=== PATIENT | male | born 1940 | race Caucasian/White ===

== ENCOUNTER 2018-01-23 11:35 | Inpatient (IN) | payer MEDICARE, SELFPAY ==
[2018-01-23] VITALS (16 sets, daily range): BP systolic 108–158; BP diastolic 52–108; PULSE 64–149; RESP 20–30; TEMP 36.7–37.2; O2SAT 64–97; BMI 40.8; BMI 39.2
--- NOTE | 2018-01-23 12:30 | RAD_ITS ---
STUDY: X-RAY CHEST REASON FOR EXAM: Male, 78 years old. Hypoxia TECHNIQUE: Single AP portable view of the chest. COMPARISON: None. FINDINGS: EKG leads overlie the chest Lungs are expanded with fluffy airspace opacifications in both lung [place] worse on the right than the left with small pleural effusions. Follow-up recommended to assure resolution Normal size heart. Normal mediastinum and pooja. Normal visualized pulmonary arteries. Normal visualized aortic arch and descending thoracic aorta. There are diffuse degenerative changes of the visualized thoracic spine. Normal visualized ribs, clavicles, and shoulders. There is no demonstrated abnormality of the visualized soft tissue structures of the upper abdomen. RAD/Chest 1 View (Portable) IMPRESSION: Alveolar infiltrates in both lung [place] with small pleural effusions. Follow-up recommended to assure resolution Electronically Signed: Abdoulaye Barrientos MD at 13:09 EDT , Service support ,
--- NOTE | 2018-01-23 12:30 | EKG12_ITS ---
Test Reason : SOB Blood Pressure : / mmHG Vent. Rate : 098 BPM Atrial Rate : 098 BPM P-R Int : 212 ms QRS Dur : 098 ms QT Int : 336 ms P-R-T Axes : 050 252 027 degrees QTc Int : 428 ms Sinus rhythm with marked sinus arrhythmia with 1st degree A-V block Possible Left atrial enlargement Right superior axis deviation Low voltage QRS Incomplete right bundle branch block Inferior infarct , age undetermined Cannot rule out Anterior infarct , age undetermined Abnormal ECG Confirmed by ANEL JENKINS, SILVANO ([id number]), editor at large CUAUHTEMOC MONTEJO ([id number]) on 01/26/2018 11:10:42 AM Referred By: PATRICK Confirmed By:SILVANO TAM MD
[2018-01-23 12:56] LABS: International Normalized Ratio 1.2; Prothrombin Time (Protime)PT. 15.2 SECONDS (11.7-14.9)
[2018-01-23 12:57] LABS: Partial Thromboplast Time 38.8 Seconds (24.1-36.2)
[2018-01-23 12:58] LABS: Absolute Lymphocyte Count 1.03 X10^3/ul (0.83-4.51); Absolute Neutrophil Count 7.1 X10^3/uL (2.0-7.7); Basophil# 0.02 X10^3/uL; Basophil% 0.2 % (0-1); Differential Indicated SCAN CRITERIA MET; Eosinophil# 0.19 X10^3/uL; Eosinophils% 1.7 % (0-5); Hematocrit 48.5 % (40-54); Hemoglobin 14.2 g/dl (13.0-16.5); Lymphocyte # 1.03 X10^3/ul (4.0); Lymphocyte % 9.4 % (19-41); Mean Corp Hgb Conc 29.3 g/gl (32-36); Mean Corpuscular Hgb 24.8 pg (27.0-32.0); Mean Corpuscular Volume 84.8 fL (80-94); Monocyte# 2.57 X10^3/uL; Monocyte% 23.4 % (0-10); Neutrophil # 7.14 X10^3/uL (2.7-7.7); POSITIVE COUNT YES; POSITIVE DIFFERENTIAL YES; POSITIVE MORPHOLOGY YES; Platelet Count 119 K/mm3 (150-450); RBC Distribution Width CV 17.4 % (11.6-14.6); RBC Distribution Width SD 53.5 fl (35.1-43.9); Red Blood Count 5.72 M/mm3 (4.6-6.2)
[2018-01-23 12:59] LABS: NRBC Flagged by Analyzer 0.8 % (0-5)
[2018-01-23 13:00] LABS: Absolute Nucleated RBC Count 0.09 10^3/uL (0-5)
[2018-01-23 13:06] LABS: ALB/GLOB Ratio 0.7 RATIO (0.9-2.4); AST(SGOT) 27 U/L (15-37); Alanine Aminotransfer ALT/SGPT 22 U/L (16-61); Alkaline Phosphatase 61 U/L (45-117); Anion Gap 6 (5-15); BUN 15 mg/dL (7-18); BUN/Creat Ratio 17.3 RATIO (10-20); Calcium,Total 8.5 mg/dL (8.5-10.1); Chloride 102 mmol/L (98-107); Creatinine, Serum 0.87 mg/dL (0.70-1.30); EST Glomerular Filtration Rate 90 mL/min (>60); Est Glom Filt Rate - Afr Amer 109 mL/min (>60); Estimated Creatinine Clearance 68.85 ml/min; Globulin 4.1 g/dL (2.2-4.2); Glucose 150 mg/dL (74-106); Lactic Acid 1.5 mmol/L (0.4-2.0); Lipase 101 U/L (73-393); Potassium 4.6 mmol/L (3.5-5.1); Protein, Total 7.1 g/dL (6.4-8.2); Sodium Level 137 mmol/L (136-145)
--- NOTE | 2018-01-23 13:13 | CT_ITS ---
STUDY: CTA CHEST REASON FOR EXAM: Male, 78 years old. Hypoxia, thyroid cancer RADIATION DOSAGE (If Supplied By Facility): CTDIvol = ( 21.65 ) mGy, DLP = ( 714.71 ) mGycm TECHNIQUE: The examination was performed with the intravenous administration of 100 ml of Isovue 370 contrast material. Post-processing of the angiographic images was performed, with multiplanar reformation and 3D reconstruction. Individualized dose optimization techniques were used for this CT. COMPARISON: None. FINDINGS: Contrast bolus within the pulmonary arteries is not optimal but there is no CTA evidence of PE. There is atherosclerotic calcification of the aortic arch with tortuosity. There is no demonstrated aortic dissection. Normal heart and pericardium. There are calcifications of the coronary arteries. There are extensive abnormally enlarged mediastinal, and perihilar lymph nodes consistent with diffuse metastasis. The lung [place] also show innumerable noncalcified nodules in both lung [place] consistent with diffuse pulmonary metastasis. There are bilateral pleural effusions and associated atelectasis. The effusion should be considered malignant until proven otherwise. There are degenerative changes of thoracic spine. Limited cuts through the upper abdomen show suspicious hypoattenuating nodules in the liver suspicious for metastasis. There are granulomatous calcifications noted in the spleen and evidence of previous cholecystectomy. CT/CTA Chest W/WO Contrast IMPRESSION: No demonstrated PE, or thoracic aortic aneurysm or dissection. Extensive abnormally enlarged mediastinal and perihilar lymph nodes suspicious for metastasis Innumerable noncalcified nodules in both lung [place] consistent with pulmonary metastasis Chronic interstitial changes in both lung [place] Degenerative bony changes Calcified coronary vessels Low-density lesions within both lobes of the liver suspicious for metastasis Electronically Signed: Abdoulaye Barrientos MD at 14:26 EDT , Service support ,
[2018-01-23 13:16] LABS: Allen Test POS; Base Excess 3 mmol/L (-2 to +2); Bicarbonate 28.9 mmol/L (22-26); Blood Gas Specimen Type ART; O2 Delivery Device Nasal Can; PO2 56 mmHG (75-100); SITE R Radial; SO2 85 % (95-99); Time Given 1305; Total Carbon Dioxide 31 mmol/L; pH 7.31 (7.35-7.45)
[2018-01-23] MEDS: Albuterol 2.5 MG/3 ML VIAL.NEB. INHALATION (13:20)
[2018-01-23] MEDS: Ipratropium/Albuterol Sulfate 3 ML AMPUL.NEB INHALATION ×2 (13:20→18:45)
[2018-01-23 13:25] LABS: BNP,B-Type NATRIURETIC PEPTIDE 396.7 pg/mL (0-100); Platelet Estimate ADEQUATE (ADEQ); Platelet Morphology LARGE
--- NOTE | 2018-01-23 15:23 | ED.RN ---
pt tried to walk out ED doors x2, pleasant and cooperative to return to room. spoke with family on phone (they are in car), and are okay with him getting admitted to [facility]. moved pt to room 6 for closer observation.
[2018-01-23] MEDS: Cefazolin 2 GM in 0.9% Normal Saline 100 ML IV (15:31)
--- NOTE | 2018-01-23 15:32 | ED.VISSUMM ---
- ER Visit Summary Date of Service: 01/23/18 Chief Complaint: Leg swelling History of Present Illness: The patient is a 78 M who presents from his family doctor's office with leg swelling. Family states that both of his legs have been significantly swollen over the past week and now the right lower leg is turning red. They want to take him to his doctor's office while he was walking and he became particularly short of breath and was noted to be hypoxic in the 70s. He has a stoma from tracheostomy which he utilizes still. He received that after a total laryngectomy due to metastatic thyroid cancer. He has known lesions in the lung and the liver which reportedly is not treatable. He wears oxygen at night but has not required it during the daytime. Family states he does not have any known heart conditions but was told that his heart was enlarged and weak. No fevers. Physical Examination: 154/88 temperature 98.9 heart rate of 108. Respirations are 26. Pulse ox is 74% on room air. Gen: Well-nourished well-developed Head: Normocephalic atraumatic Eyes: Perrl EOMI ENT: TMs clear no rhinorrhea moist mucous membranes Neck: Supple no lymphadenopathy no JVD nontender CVS: Regular rate and tachycardic rhythm no murmurs normal S1-S2 Respiratory: Patient is tachypneic but not in distress has diminished breath sounds at bases and rales chest nontender Abdomen: Soft nontender nondistended normal bowel sounds no masses Back: Nontender Extremity: 3+ lower extremity edema. The right distal leg above the medial and lateral malleolus demonstrate erythema and increased warmth. There is also being sores. Skin: Normal color no rash Neuro: alert orientated ?3 CN II-XII intact normal strength sensation reflexes Psych: Normal affect normal mood Test Results: Chest x-ray shows pulmonary masses and pleural effusion. CTA of the chest demonstrates numerous lesions in the chest and liver as well as enlarged lymphadenopathy in the chest. No obvious pulmonary embolism. There are pleural effusions. Emergency Department Course and Treatment: Patient had blood cultures drawn. He received Ancef. He also received Lasix. Plan will be admission for diuresis echocardiogram and further care. Impression: 1. Metastatic thyroid cancer 2. Bilateral edema 3. Right leg cellulitis 4. Hypoxemia 5. Bilateral pleural effusions 6. Thrombocytopenia This note was generated with Dragon dictation software. It may contain incorrect words, spelling, and punctuation that were not noted in review of the chart prior to signing ED Disposition - Plan for ED Patient: Chief Complaint: Shortness of Breath Referrals: Shan Bonilla MD [Primary Care Provider] -
[2018-01-23] MEDS: Furosemide 100 MG/10 ML Vial 80 MG IV (15:50)
--- NOTE | 2018-01-23 16:14 | PCM.HP.STD ---
<Estrella Christine - Last Filed: 01/23/18 17:02> Problem List (1) Hypothyroidism Status: Chronic Qualifiers: Hypothyroidism type: acquired Qualified Code(s): E03.9 - Hypothyroidism, unspecified (2) ASHLEIGH (obstructive sleep apnea) Status: Chronic (3) Thyroid cancer Status: Chronic Comment: s/p thyroidectomy 2011 (4) Chronic respiratory failure with hypoxia Status: Chronic Comment: Wears O2 at night only. History of Present Illness Date of Admission: 01/23/18 Chief Complaint: Shortness of breath, hypoxia, lower extremity swelling. The patient is a 78 year old M who presents the emergency room due to shortness of breath and lower extremity swelling which has been ongoing for 2 weeks. Patient reports sleeping in chair due to difficulty breathing while lying flat. Right lower extremity with redness. Denies warmth, denies pain. Patient reported to primary care office today and was noted to be hypoxic with O2 saturations in the 70s. Family at bedside state patient's legs have never been swollen prior to this. No known history of CHF. Patient denies increased cough, fever, chills. Patient has chronic cough with intermittent sputum production. Patient reports chronic cough with hemoptysis since 2011. Patient has tracheostomy status post total laryngectomy due to metastatic thyroid cancer. Total laryngectomy completed in 2011. Patient and family deny known active cancer. His other past medical history includes obstructive sleep apnea, chronic hypoxic respiratory failure wearing oxygen at night only, hypothyroidism status post thyroidectomy, obesity. Past Medical History Past Medical History (Chronic Problems): Chronic Problems Hypothyroidism (Chronic) ASHLEIGH (obstructive sleep apnea) (Chronic) Thyroid cancer (Chronic) s/p thyroidectomy 2011 Chronic respiratory failure with hypoxia (Chronic) Wears O2 at night only. 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 Psychiatric History: No pertinent psych hx Lives: Spouse/ Significant Other Smoking Status: Former smoker Alcohol: None Drugs: None - *Family History Maternal History Items: Cancer - Uterine cancer with metastasis to the brain Paternal History Items: No pertinent history Review of Systems Constitutional: Denies: Chills, Fever, Weakness HEENT: Denies: Head Aches, Sinus Congestion, Sinus Drainage Cardiovascular: Reports: Edema - BLLE. Denies: Chest Pain, Chest Pressure, Light Headedness, Palpitations, Syncope Respiratory: Reports: Cough - Chronic with hemoptysis, Shortness of Breath Gastrointestinal: Reports: - - Hernia, chronic. Denies: Abdominal Pain, Nausea, Vomiting Genitourinary: Denies: Dysuria Musculoskeletal: Denies: Joint Pain, Joint Tenderness Skin: Reports: - - Redness right lower extremity. Denies: Rash, Wounds Neurological: Denies: Numbness, Tingling, Focal weakness Psychiatric: Denies: Anxiety, Depression, Homicidal Ideations, Suicidal Ideations Hematologic/ Lymphatic: Denies: Easy Bruising, Easy Bleeding VTE Information - Inpt Only VTE Present on Admission: No VTE Mechan Device Prophylaxis: None VTE Pharm Prophylaxis ordered?: Yes - Physical Exam General: Alert, Cooperative, No apparent distress HEENT: Atraumatic, PERRLA, EOMI, Normocephalic Neck: Supple, No JVD, Negative Carotid Bruits, - - Stoma Lungs: Diminished, Rales Cardiovascular: Regular Rhythm, Normal S1, Normal S2, No murmurs, Tachycardic Abdomen: Bowel Sounds Present, Soft, Non Tender, Non-Distended, Obese, Hernia Extremities: No clubbing, No cyanosis, Edema - +3 BLLE. Skin: No rashes, No breakdown, - - Redness RLE, no warmth. Denies calf pain. Musculoskeletal: No Tenderness to Palpation of Joints or Extremities Neurological: Cranial nerves II-XII grossly intact, Neuro grossly intact Psych/Mental Status: Normal Affect, Appropriate Vital Signs Temp Pulse Resp BP Pulse Ox 98.9 F 110 H 30 H 134/108 H 92 01/23/18 11:40 01/23/18 14:39 01/23/18 14:39 01/23/18 16:03 01/23/18 14:39 Oxygen Flow Rate (L/min) 4 Oxygen Delivery Method Nasal Cannula Weight: 276 lb 3.827 oz Body Mass Index (BMI) 40.8 Laboratory Tests Past 24 Hrs 01/23/18 01/23/18 01/23/18 12:00 12:00 12:00 WBC 11.0 RBC 5.72 Hgb 14.2 Hct 48.5 MCV 84.8 MCH 24.8 L MCHC 29.3 L RDW 17.4 H RDW Differential 53.5 H Plt Count 119 L Immature Gran % (Auto) 0.300 Neut % (Auto) 65.0 Lymph % (Auto) 9.4 L Mcmullen % (Auto) 23.4 H Eos % (Auto) 1.7 Baso % (Auto) 0.2 Absolute Neuts (auto) 7.1 Absolute Lymphs (auto) 1.03 Total Counted Not Reportable Nucleated RBC % 0.8 Platelet Estimate ADEQUATE Plt Morphology Comment LARGE Absolute Retic 0.09 PT 15.2 H INR 1.2 APTT 38.8 H Specimen Type Sample Site pH Bicarbonate Actual POC Total CO2 Base Excess O2 Saturation ABG pCO2 ABG pO2 Bayron Test O2 Delivery Device Liter Flow Blood Gas Notified Whom Blood Gas Notified Time Sodium 137 Potassium 4.6 Chloride 102 Carbon Dioxide 29.0 Anion Gap 6 BUN 15 Creatinine 0.87 Estim Creat Clear Calc 68.85 Est GFR (MDRD) Af Amer 109 Est GFR (MDRD) Non-Af 90 BUN/Creatinine Ratio 17.3 Glucose 150 H Lactic Acid Calcium 8.5 Total Bilirubin 0.60 AST 27 ALT 22 Alkaline Phosphatase 61 Troponin I 0.016 B-Natriuretic Peptide Total Protein 7.1 Albumin 3.0 L Globulin 4.1 Albumin/Globulin Ratio 0.7 L Lipase 101 01/23/18 01/23/18 01/23/18 12:00 12:00 13:09 WBC RBC Hgb Hct MCV MCH MCHC RDW RDW Differential Plt Count Immature Gran % (Auto) Neut % (Auto) Lymph % (Auto) Mcmullen % (Auto) Eos % (Auto) Baso % (Auto) Absolute Neuts (auto) Absolute Lymphs (auto) Total Counted Nucleated RBC % Platelet Estimate Plt Morphology Comment Absolute Retic PT INR APTT Specimen Type ART Sample Site R Radial pH 7.31 L Bicarbonate Actual 28.9 H POC Total CO2 31 Base Excess 3 H O2 Saturation 85 L ABG pCO2 57.0 H ABG pO2 56 L Bayron Test POS O2 Delivery Device Nasal Can Liter Flow 5.0 Blood Gas Notified Whom ED MD Blood Gas Notified Time 1305 Sodium Potassium Chloride Carbon Dioxide Anion Gap BUN Creatinine Estim Creat Clear Calc Est GFR (MDRD) Af Amer Est GFR (MDRD) Non-Af BUN/Creatinine Ratio Glucose Lactic Acid 1.5 Calcium Total Bilirubin AST ALT Alkaline Phosphatase Troponin I B-Natriuretic Peptide 396.7 H Total Protein Albumin Globulin Albumin/Globulin Ratio Lipase Assessment/Plan 1. Acute on chronic hypoxic respiratory failure suspect secondary to acute CHF, unknown subtype-chest x-ray on admission with small bilateral pleural effusions. Chest CTA showed no PE. Extensive abnormally enlarged mediastinal and perihilar lymph nodes suspicious for metastasis. Innumerable noncalcified nodules in both lung [place] consistent with pulmonary metastasis. Calcified coronary vessels. Low-density lesions within both lobes of the liver suspicious for metastasis. BNP 396. Patient reports he wears oxygen at night only at home. Continue supplement oxygen to maintain O2 at or above 90%. Bilateral lower extremity edema. Sumanth wraps bilateral lower extremities. Obtain echocardiogram. IV Lasix 40 mg twice daily. Strict I&O. Daily weight. Do not suspect RLE cellulitis. Obtain duplex US RLE to rule out DVT. Suspect this is chronic skin changes due to lymphedema. 2. Bilateral pleural effusions-suspect secondary to fluid overload. Repeat chest x-ray after diuresis. 3. Obstructive sleep apnea-CPAP nightly. 4. Hypothyroidism status post thyroid cancer with metastasis-continue synthroid regimen. Check TSH. 5. Thyroid cancer with metastasis to lung, liver, lymph node? Status post thyroidectomy. Patient and family deny known active cancer. Unclear how extensive metastasis is. Follows with Dr. Aquino, [facility] Oncology. Unclear how recently he has followed up. Consult Dr. Oro given concern for metastasis which patient denies being aware of. CT from July 2017 at [facility] showed interval increase in size of pulmonary masses and nodules with development of new nodules. Findings worsened from prior studies. Worsening of mediastinal and hilar lymphadenopathy. Multiple lesions in the liver. 6. Chronic hemoptysis-patient reports this is been ongoing since 2011. PCP records show patient was hospitalized for recurrent hemoptysis in 2016 at outside facility. He underwent therapeutic bronchoscopy. Does not follow with pulmonary medicine. Has not seen primary care since 2013. 7. Status post insulinoma resection 8. Chronic thrombocytopenia-stable, trend CBC. 9. Obesity-encourage diet lifestyle modifications. Nutrition consult. 10. Stoma with prior tracheostomy? ST evaluation. Pt denies difficulty swallowing. S/P thyroidectomy/laryngectomy. DVT prophylaxis-Lovenox sc. CODE status: attempted discussion with patient and was unable to understand his wishes regarding code status. Will contact family for further discussion. This patient was seen by MARLYN Landaverde under the supervision of Dr. Ang. <SavJuliannamarck E - Last Filed: 01/23/18 17:32> History of Present Illness The patient is a 78 year old M [] Past Medical History Allergies No Known Allergies Allergy (Verified 01/23/18 11:43) - Physical Exam Vital Signs Temp Pulse Resp BP Pulse Ox 98.9 F 110 H 30 H 134/108 H 92 01/23/18 11:40 01/23/18 14:39 01/23/18 14:39 01/23/18 16:03 01/23/18 14:39 Oxygen Flow Rate (L/min) 4 Oxygen Delivery Method Nasal Cannula Weight: 276 lb 3.827 oz Body Mass Index (BMI) 40.8 Laboratory Tests Past 24 Hrs 01/23/18 01/23/18 01/23/18 12:00 12:00 12:00 WBC 11.0 RBC 5.72 Hgb 14.2 Hct 48.5 MCV 84.8 MCH 24.8 L MCHC 29.3 L RDW 17.4 H RDW Differential 53.5 H Plt Count 119 L Immature Gran % (Auto) 0.300 Neut % (Auto) 65.0 Lymph % (Auto) 9.4 L Mcmullen % (Auto) 23.4 H Eos % (Auto) 1.7 Baso % (Auto) 0.2 Absolute Neuts (auto) 7.1 Absolute Lymphs (auto) 1.03 Total Counted Not Reportable Nucleated RBC % 0.8 Platelet Estimate ADEQUATE Plt Morphology Comment LARGE Absolute Retic 0.09 PT 15.2 H INR 1.2 APTT 38.8 H Specimen Type Sample Site pH Bicarbonate Actual POC Total CO2 Base Excess O2 Saturation ABG pCO2 ABG pO2 Bayron Test O2 Delivery Device Liter Flow Blood Gas Notified Whom Blood Gas Notified Time Sodium 137 Potassium 4.6 Chloride 102 Carbon Dioxide 29.0 Anion Gap 6 BUN 15 Creatinine 0.87 Estim Creat Clear Calc 68.85 Est GFR (MDRD) Af Amer 109 Est GFR (MDRD) Non-Af 90 BUN/Creatinine Ratio 17.3 Glucose 150 H Lactic Acid Calcium 8.5 Total Bilirubin 0.60 AST 27 ALT 22 Alkaline Phosphatase 61 Troponin I 0.016 B-Natriuretic Peptide Total Protein 7.1 Albumin 3.0 L Globulin 4.1 Albumin/Globulin Ratio 0.7 L Lipase 101 01/23/18 01/23/18 01/23/18 12:00 12:00 13:09 WBC RBC Hgb Hct MCV MCH MCHC RDW RDW Differential Plt Count Immature Gran % (Auto) Neut % (Auto) Lymph % (Auto) Mcmullen % (Auto) Eos % (Auto) Baso % (Auto) Absolute Neuts (auto) Absolute Lymphs (auto) Total Counted Nucleated RBC % Platelet Estimate Plt Morphology Comment Absolute Retic PT INR APTT Specimen Type ART Sample Site R Radial pH 7.31 L Bicarbonate Actual 28.9 H POC Total CO2 31 Base Excess 3 H O2 Saturation 85 L ABG pCO2 57.0 H ABG pO2 56 L Bayron Test POS O2 Delivery Device Nasal Can Liter Flow 5.0 Blood Gas Notified Whom ED MD Blood Gas Notified Time 1305 Sodium Potassium Chloride Carbon Dioxide Anion Gap BUN Creatinine Estim Creat Clear Calc Est GFR (MDRD) Af Amer Est GFR (MDRD) Non-Af BUN/Creatinine Ratio Glucose Lactic Acid 1.5 Calcium Total Bilirubin AST ALT Alkaline Phosphatase Troponin I B-Natriuretic Peptide 396.7 H Total Protein Albumin Globulin Albumin/Globulin Ratio Lipase Assessment/Plan Hospitalist note: I am seeing this patient in conjunction with Estrella Christine. I independently seen and examined the patient. History and physical, laboratory data and imaging studies reviewed. I agree with above admission and treatment plan. This patient has complicated past medical history with past history of metastatic thyroid cancer status post surgery and laryngectomy, not a candidate for chemotherapy according to the patient and ER physician who reviewed the patient's oncologist note. Patient was sent to the ED today from his PCPs office because of hypoxia, was found to have pulse ox in the 70s on room air. He complained of increasing bilateral lower extremity swelling as well as shortness of breath that has been going on for couple of weeks. At this time, patient was not able to provide detailed history and because of the tracheostomy stoma, he has difficulties speaking because of aphonia and it was very hard to understand what he is saying. In the emergency department, patient was afebrile, tachycardic, hypoxic and he required up to 4 L of oxygen and his blood pressure was stable. His routine blood work was remarkable for thrombocytopenia which is not clear if this is chronic. BMP, LFT and lipase were normal. His troponin was 0.016, BNP was 396. Chest x-ray revealed bilateral small pleural effusion more on the right side as well as bilateral pulmonary metastasis. CTA chest showed no evidence of PE, revealed extensive large mediastinal lymph nodes, innumerable nodules in both lung [place] consistent with metastasis. He is being admitted for acute hypoxic and hypercapnic respiratory failure and probable CHF. - Physical Exam General: Alert, Oriented x3, Cooperative, No apparent distress. HEENT: Atraumatic, PERRLA, EOMI. Neck: Supple, No JVD, Negative Carotid Bruits, Trachea Midline, Thyroid Normal. Lungs: Decreased breath sounds bilateral, bilateral coarse crackles, minimal shortness of breath, no wheezing. Cardiovascular: Regular rate, Regular Rhythm, Normal S1, Normal S2, PMI Normal, tachycardia. Abdomen: Bowel Sounds Present, Soft, Non Tender, Non-Distended, No Hepato-splenomegaly, umbilical hernia. Extremities: No clubbing, No cyanosis,+++ massive nonpitting edema. Right lower leg is red. Skin: No rashes, No breakdown Neurological: Neuro grossly intact Assessment and plan: #1 acute on chronic hypoxic and hypercapnic respiratory failure: Patient never been oxygen before but he is a chronic smoker in the past. This is could be due to probable CHF in addition to history of pulmonary metastasis. His ABG revealed pH of 7.31, PCO2 of 57 and PO2 of 56. Chest x-ray reviewed as above. Plan: Admit to PCU, IV diuresis, 2D echocardiogram, bronchodilators, duplex ultrasound of the right leg to rule out DVT. #2 probable CHF, unspecified: Patient had no history of CAD or heart disease. Clinically, he could be in CHF based on his symptoms, leg edema and elevated BNP as well as chest x-ray findings. Plan: IV diuresis, fluid restriction, 2D echocardiogram. #3 small bilateral pleural effusion: More on the right side. Could be transudative because of CHF or exudative because of his pulmonary metastasis. Plan as above. #4 metastatic thyroid cancer with metastases to liver and lung: Status post thyroidectomy and laryngectomy, was informed by oncology at [facility] that he is not a candidate for chemotherapy, not clear why. #5 CODE STATUS: I spoke with the patient about his CODE STATUS and I could not understand what he wants to say. We need to speak with the family about his CODE STATUS. #6 other chronic medical problems: Stable, continue current medications as above. This note was generated with Peekyation software. It may contain incorrect words, spelling, and punctuation that were not noted in checking the note before signing. Code Visit Inpatient E&M: 39006 Init Hosp L3
--- NOTE | 2018-01-23 16:58 | VDLE_ITS ---
Reason For Study: swelling RIGHT LEFT GSV is normal. CFV is compressible, spontaneous, phasic, CFV is compressible, spontaneous, phasic, competent, and demonstrates normal competent and demonstrates normal augmentation. augmentation. FV is compressible, spontaneous, phasic, competent and demonstrates normal augmentation. POP V is compressible, spontaneous, phasic, competent and demonstrates normal augmentation. T/P Trunk is compressible. PTV is compressible. RT PerV is compressible. Procedure Exam performed portable in patient room. The exam was diagnostic. A preliminary report was called and/or faxed to the pt's RN. Interpretation Summary There is no evidence of right lower extremity deep vein thrombosis. Right greater saphenous vein appears patent and compressible segmentally. Normal flow patterns left common femoral vein. Crdering Physician: Estrella Christine NP- Performed By: Kemal Oliva RVT
--- NOTE | 2018-01-23 17:10 | ECHOCS_ITS ---
Reason For Study: DYSPNEA/SOB Procedure This was a 2D Doppler, Color Flow transthoracic echocardiogram. The study was technically difficult. Contrast injection was performed. Exam performed portable in patient room. Left Ventricle Based upon the 2D echocardiographic and contrast enhanced images obtained there is grossly normal appearing left ventricular size, wall motion, and systolic function. The estimated ejection fraction is 55 %. Diastolic function is indeterminate. Right Ventricle 2D echocardiographic and contrast enhance images obtained potentially c/w mild right ventricular dilatation and global dysfunction. Atria Normal left atrium. Possible mild right atrial enlargement. No doppler evidence for ASD. Mitral Valve There is no mitral annular calcification. Normal mitral valve. Trivial mitral valve insufficiency. Tricuspid Valve Normal tricuspid valve. Trivial tricuspid valve insufficiency. Unable to estimate RV systolic pressure/pulmonary artery pressure due to technically difficult study. Aortic Valve Trisinus/trileaflet aortic valve. Mild diffuse aortic valve thickening. Mild diffuse aortic valve calcification. Aortic sclerosis, no stenosis. Trivial aortic valve insufficiency. Pulmonic Valve The pulmonic valve is not well visualized. Trivial pulmonic valve insufficiency. Great Vessels Mildly dilated aortic root. Pericardium/Pleural No pericardial effusion. Medication Diluted definity 5ml given slow IV push to enhance endocardial definition. MMode/2D Measurements & Calculations LVIDd: 4.9 cm IVSd: 1.3 cm LVOT diam: 3.0 cm LVIDs: 3.2 cm LVPWd: 0.94 cm LVOT area: 7.2 cm2 FS: 35.5 % Ao root diam: 4.1 cm LA dimension: 3.2 cm Aortic Valve Planimetry: 2.6 cm2 Doppler Measurements & Calculations MV E max paolo: 52.9 cm/sec Lat Peak E' Paolo: 7.8 cm/sec Med Peak E' Paolo: 8.2 cm/sec MV A max paolo: 100.2 cm/sec E/E' lat: 6.8 E/E' med: 6.5 MV E/A: 0.53 Ao V2 max: 225.4 cm/sec LV V1 max: 80.9 cm/sec SV(LVOT): 103.1 ml Ao max P.5 mmHg LV V1 max P.6 mmHg Ao V2 mean: 176.4 cm/sec LV V1 mean P.5 mmHg Ao mean P.7 mmHg LV V1 mean: 58.5 cm/sec Ao V2 VTI: 38.3 cm LV V1 VTI: 14.3 cm GRETTA(I,D): 2.7 cm2 GRETTA(V,D): 2.6 cm2 PA V2 max: 93.8 cm/sec Interpretation Summary The study was technically difficult. Contrast injection was performed. Based upon the 2D echocardiographic and contrast enhanced images obtained there is grossly normal appearing left ventricular size, wall motion, and systolic function. The estimated ejection fraction is 55 %. 2D echocardiographic and contrast enhance images obtained potentially c/w mild right ventricular dilatation and global dysfunction. Possible mild right atrial enlargement. Trivial mitral valve insufficiency. Trivial tricuspid valve insufficiency. Aortic sclerosis, no stenosis. Trivial aortic valve insufficiency. Trivial pulmonic valve insufficiency. Mildly dilated aortic root. Unable to estimate RV systolic pressure/pulmonary artery pressure due to technically difficult study. Diastolic function is indeterminate. Ordering Physician: Basim Ang Referring Physician: PITER HUGHES Performed By: Tara Bose RDCS
--- NOTE | 2018-01-23 17:33 | EKG12_ITS ---
Test Reason : ADMISSION Blood Pressure : / mmHG Vent. Rate : 115 BPM Atrial Rate : 102 BPM P-R Int : 204 ms QRS Dur : 092 ms QT Int : 344 ms P-R-T Axes : 026 253 026 degrees QTc Int : 475 ms Sinus tachycardia with Premature supraventricular complexes Possible Left atrial enlargement Inferior infarct , age undetermined Anterolateral infarct , age undetermined Abnormal ECG When compared with ECG of 23-JAN-2018 12:45, MANUAL COMPARISON REQUIRED, DATA IS UNCONFIRMED Confirmed by DAVE JENKINS, JONATHAN ([id number]), editor & co founder KESHAV LECHUGA ([id number]) on 01/30/2018 11:01:30 AM Referred By: ART Confirmed By:JONATHAN ACOSTA MD
--- NOTE | 2018-01-23 17:40 | CPS ---
Addendum entered by Anita Howe 01/23/18 20:48: Original Note: pt on room air...64%. pt placed on 50% venti to stoma with trach collar mask...sat to 93%.
[2018-01-23 17:58] LABS: Thyroid Stim Hormone (TSH) 0.13 uIU/mL (0.358-3.74)
[2018-01-23] MEDS: 0.9% NaCl Peripheral Flush Adult/Peds IV (18:55)
[2018-01-23] MEDS: Furosemide 40 MG/4 ML Vial IV (18:55)
[2018-01-23] MEDS: Nystatin/Triamcin Cream Tube 1 APPLIC TOPICAL (23:15)
[2018-01-24] VITALS (21 sets, daily range): BP systolic 101–133; BP diastolic 52–80; PULSE 90–164; RESP 16–40; TEMP 36.6–37.4; O2SAT 90–98
[2018-01-24] MEDS: Ipratropium/Albuterol Sulfate 3 ML AMPUL.NEB INHALATION ×3 (01:09→13:10)
--- NOTE | 2018-01-24 01:51 | RAD_ITS ---
STUDY: X-RAY CHEST REASON FOR EXAM: Male, 78 years old. Tachypnea and tachycardia. History of thyroid cancer TECHNIQUE: PA and lateral views of the chest. COMPARISON: 01/23/2018. FINDINGS: Bilateral infiltrates are again seen markedly worse on the right side unchanged since the prior examination. There are small bilateral pleural effusions. Normal size heart. Normal mediastinum and pooja. Normal visualized pulmonary arteries. There is atherosclerotic tortuosity of the aortic arch and descending thoracic aorta. Normal visualized thoracic spine. Normal visualized ribs, clavicles, and shoulders. There is no demonstrated abnormality of the visualized soft tissue structures of the upper abdomen. RAD/Chest PA and Lateral IMPRESSION: Bilateral infiltrates worse on the right side unchanged as prior examination. Small bilateral pleural effusions. Electronically Signed: Alvaro Barrera MD at 2:44 EDT Tel , Service support ,
[2018-01-24 02:56] LABS: Absolute Lymphocyte Count 1.85 X10^3/ul (0.83-4.51); Basophil# 0.02 X10^3/uL; Basophil% 0.2 % (0-1); Differential Indicated SCAN CRITERIA MET; Eosinophil# 0.13 X10^3/uL; Eosinophils% 1.1 % (0-5); Hematocrit 47.4 % (40-54); Hemoglobin 14.2 g/dl (13.0-16.5); Lymphocyte # 1.85 X10^3/ul (4.0); Lymphocyte % 15.7 % (19-41); Mean Corpuscular Hgb 25.1 pg (27.0-32.0); Mean Corpuscular Volume 83.9 fL (80-94); Monocyte# 1.73 X10^3/uL; Monocyte% 14.7 % (0-10); Neutrophil # 8.02 X10^3/uL (2.7-7.7); POSITIVE COUNT YES; POSITIVE DIFFERENTIAL YES; POSITIVE MORPHOLOGY YES; Platelet Count 115 K/mm3 (150-450); RBC Distribution Width CV 17.4 % (11.6-14.6); Red Blood Count 5.65 M/mm3 (4.6-6.2); White Blood Count 11.8 K/mm3 (4.4-11.0)
[2018-01-24 03:11] LABS: Anion Gap 7 (5-15); BUN 12 mg/dL (7-18); BUN/Creat Ratio 14.7 RATIO (10-20); Chloride 104 mmol/L (98-107); Creatinine, Serum 0.82 mg/dL (0.70-1.30); EST Glomerular Filtration Rate 97 mL/min (>60); Est Glom Filt Rate - Afr Amer 117 mL/min (>60); Estimated Creatinine Clearance 73.05 ml/min; Glucose 130 mg/dL (74-106); Magnesium 1.9 mg/dL (1.6-2.6); Sodium Level 139 mmol/L (136-145)
[2018-01-24 03:15] LABS: Lactic Acid 1.7 mmol/L (0.4-2.0)
--- NOTE | 2018-01-24 03:30 | EKG12_ITS ---
Test Reason : RHY CHANGE Blood Pressure : / mmHG Vent. Rate : 114 BPM Atrial Rate : 114 BPM P-R Int : 204 ms QRS Dur : 098 ms QT Int : 312 ms P-R-T Axes : 047 261 047 degrees QTc Int : 430 ms Sinus tachycardia Possible Left atrial enlargement Right superior axis deviation Inferior infarct , age undetermined Anterior infarct , age undetermined Abnormal ECG When compared with ECG of 23-JAN-2018 18:47, MANUAL COMPARISON REQUIRED, DATA IS UNCONFIRMED Confirmed by DAVE JENKINS, JONATHAN ([id number]), assignment editor KESHAV LECHUGA ([id number]) on 01/30/2018 10:59:42 AM Referred By: ANKITA Confirmed By:JONATHAN ACOSTA MD
[2018-01-24 03:48] LABS: Absolute Nucleated RBC Count 0.06 10^3/uL (0-5); NRBC Flagged by Analyzer 0.5 % (0-5)
[2018-01-24 03:49] LABS: Differential Comment SCANNED; Hypochromasia 3+; Platelet Estimate ADEQUATE (ADEQ); Platelet Morphology A; Target Cells 2+
[2018-01-24] MEDS: Nystatin/Triamcin Cream Tube 1 APPLIC TOPICAL ×2 (05:27→14:39)
[2018-01-24] MEDS: Levothyroxine 137 MCG Tablet 274 MCG PO (05:27)
--- NOTE | 2018-01-24 07:59 | CON.PCM_ITS ---
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 Patient was directed to the emergency room today by his primary care physician after presenting there with a several week history of progressive dyspnea and lower extremity swelling. The patient was having orthopnea and was sleeping in a chair. Evidently not previously had swelling and edema of the lower extremities like he presented with. No prior history of congestive heart failure. He was known to be hypoxemic with oxygen saturation was in the 70s on room air. He was admitted to the hospital yesterday and started on diuresis. He is currently on a 50% Venturi mask but he is breathing via tracheostomy. No fevers. Echocardiogram pending. Oncologic history as follows: 1. 10/2011 ? diagnosed with PTC with gross laryngotracheal invasion s/p TL, TT, right central neck dissection (Dr. Jma Park): multiple foci of PTC, largest 4.0 cm and involving the larynx and trachea, with extensive LVSI and ETE, total 11/23 LN+. pT4a N1b.? 2. 01/28/2012 ? s/p 170 mCi MUNOZ: negative. Pulmonary nodules noted. 3. Patient received no further cancer-directed therapies. Lung nodules monitored with CT scans. 4. 06/2015 ? patient developed hemoptysis. 5. 09/11/2015 ? s/p EBUS + bx: metastatic PTC RUL 6. 12/2015 ? admitted for recurrent hemoptysis s/p bronchoscopy with epinephrine treatment. 7. 01/06/2016 ? s/p RT (8 Gy in 1 fx) to right lung. 8. 12/11/2016 - s/p 20 Gy in 5 fx to left upper neck and submandibular gland ? he had a history of recurrent hemoptysis and was in the fall of 2016 advised not to receive therapy with lenvatinib due to the increased risk of bleeding. Allergies No Known Allergies Allergy (Verified 01/23/18 11:43) Current Medications Acetaminophen (Tylenol) 650 mg PO Q6H PRN PRN PRN Reason: Mild Pain (scale 0-3)/T>100.7 Acetaminophen (Tylenol) 650 mg PO Q6H PRN PRN PRN Reason: Fever, headache, pain Albuterol Sulfate (Ventolin Aerosols) 2.5 mg INHALATION Q2H PRN PRN PRN Reason: Shortness of breath, wheezing Albuterol/Ipratropium (Duoneb) 3 ml INHALATION Q6H.RT [facility] Last Admin: 01/24/18 06:58 Dose: 3 ml Enoxaparin Sodium (Lovenox) 40 mg SC DAILY@1000 [facility] Furosemide (Lasix) 40 mg IV BID@1000,1800 [facility] Last Admin: 01/23/18 18:55 Dose: 40 mg Sodium Chloride () 250 mls @ 15 mls/hr IV .[id number] PRN PRN Reason: SALINE FLUSH Levothyroxine Sodium (Synthroid) 137 mcg PO MoFr@0600 [facility] Levothyroxine Sodium (Synthroid) 274 mcg PO SuTuWeThSa@0600 [facility] Last Admin: 01/24/18 05:27 Dose: 274 mcg Magnesium Hydroxide (Milk Of Magnesia) 30 ml PO DAILY PRN PRN Reason: Constipation Nystatin/Triamcinolone Acetonide (Mycolog) 1 applic TOPICAL TID [facility]; Protocol Last Admin: 01/24/18 05:27 Dose: 1 applicatio Ondansetron HCl (Zofran) 4 mg IV Q8H PRN PRN PRN Reason: NAUSEA/VOMITING Oxycodone HCl (Oxyir) 5 mg PO Q6H PRN PRN PRN Reason: SEVERE PAIN (6-10/10) Sodium Chloride () 5 - 30 ml IV UD PRN PRN Reason: SALINE FLUSH Last Admin: 01/23/18 18:55 Dose: 10 ml Tramadol HCl (Ultram) 50 mg PO BID [facility] Last Admin: 01/23/18 21:25 Dose: Not Given SOC: Quit smoking in 1970. He previously had about a 7-pack-year history. Only previous occasional alcohol use. FAM: Significant family history of mother having had uterine cancer metastatic to brain. at age 54. PHYSICAL EXAM: Vitals: Vital Signs Temp 98.7 F 01/24/18 07:35 Pulse 116 H 01/24/18 07:35 Resp 32 H 01/24/18 07:35 BP 113/62 01/24/18 07:35 Pulse Ox 96 01/24/18 07:35 Intake & Output 01/22/18 01/23/18 01/24/18 23:59 23:59 23:59 Intake Total 0 / 0 90 / 90 Output Total 1890 / 1890 280 / 280 Balance -1890 / -1890 -190 / -190 Weight: 120.4 kg 116.1 kg Intake: Oral 0 / 0 90 / 90 IV fluid/meds 0 / 0 0 / 0 Output: Urine 1889 1890 280 / 280 Other: Number of Bowel Movements 1 No acute distress. EYES: Sclerae are anicteric bilaterally. NECK: Tracheostomy. No palpable mass. LYMPHATIC: There is no supraclavicular adenopathy. RESPIRATORY: poor air entry and decreased inspiratory breath sounds in all [place]. CARDIOVASCULAR: Rhythm is regular. ABDOMEN: The abdomen is nondistended. No tenderness. Extremities: swelling and edema to the knees bilaterally. Sumanth wrap's in place. SKIN: No jaundice or rash. NEUROLOGIC: hog grader II-XII are grossly intact. Assessment/Plan: 1) Hypoxemic respiratory failure. Assessment: -No known history of CAD or CHF. -History of obstructive sleep apnea. -He has diuresed and is down about 4 kg from admission. Feels his breathing is a little better this morning. -I personally reviewed the CT scan images. He has extensive pulmonary metastases along with significant mediastinal adenopathy and potential obstruction of airway on the right side due to tumor. Plan: -Obtain echocardiogram. -Continue diuresis. -Continue supplemental oxygen station. -Consider pulmonary consultation for assessment of airways. -Left therapeutic thoracenteses may help as well. 2) Metastatic radioactive iodine resistant metastatic papillary thyroid cancer. Assessment: -Extensive disease with progressive pulmonary and mediastinal lymph node metastases and new liver metastases. -His performance status is poor and treatment with lenvatinib would be poorly tolerated and not likely to add any clinically meaningful response in terms of palliation or prolongation of survival. Plan: -I will discuss CODE STATUS with the patient's . -Recommend hospice care, the timing of which depending on what can be done to help his hypoxemia.
[2018-01-24 08:02] LABS: Anion Gap 9 (5-15); BUN 12 mg/dL (7-18); BUN/Creat Ratio 15.4 RATIO (10-20); Calcium,Total 8.4 mg/dL (8.5-10.1); Chloride 104 mmol/L (98-107); Creatinine, Serum 0.78 mg/dL (0.70-1.30); EST Glomerular Filtration Rate 102 mL/min (>60); Est Glom Filt Rate - Afr Amer 124 mL/min (>60); Glucose 112 mg/dL (74-106); Potassium 4.1 mmol/L (3.5-5.1); Sodium Level 144 mmol/L (136-145)
[2018-01-24 08:07] LABS: Absolute Lymphocyte Count 2.21 X10^3/ul (0.83-4.51); Absolute Neutrophil Count 7.8 X10^3/uL (2.0-7.7); Basophil# 0.01 X10^3/uL; Basophil% 0.1 % (0-1); Eosinophil# 0.16 X10^3/uL; Eosinophils% 1.4 % (0-5); Hematocrit 47.3 % (40-54); Hemoglobin 13.7 g/dl (13.0-16.5); Lymphocyte # 2.21 X10^3/ul (4.0); Lymphocyte % 18.7 % (19-41); Mean Corpuscular Hgb 24.8 pg (27.0-32.0); Mean Corpuscular Volume 85.5 fL (80-94); Monocyte# 1.65 X10^3/uL; Neutrophil # 7.75 X10^3/uL (2.7-7.7); Neutrophil % 65.7 % (47-70); Platelet Count 116 K/mm3 (150-450); RBC Distribution Width CV 17.5 % (11.6-14.6); RBC Distribution Width SD 54.8 fl (35.1-43.9); Red Blood Count 5.53 M/mm3 (4.6-6.2); White Blood Count 11.8 K/mm3 (4.4-11.0)
[2018-01-24 08:12] LABS: Differential Indicated SCAN CRITERIA MET; POSITIVE COUNT NO; POSITIVE DIFFERENTIAL YES; POSITIVE MORPHOLOGY YES
[2018-01-24 08:15] LABS: Absolute Nucleated RBC Count 0.05 10^3/uL (0-5); NRBC Flagged by Analyzer 0.5 % (0-5)
[2018-01-24] MEDS: Enoxaparin 40 MG/0.4 ML Syringe SC (09:25)
[2018-01-24] MEDS: traMADol 50 MG Tablet PO (09:30)
[2018-01-24] MEDS: Furosemide 40 MG/4 ML Vial IV (11:28)
[2018-01-24] MEDS: 0.9% NaCl Peripheral Flush Adult/Peds IV (11:28)
--- NOTE | 2018-01-24 12:27 | PCM.PROGNOTE ---
<Estrella Christine - Last Filed: 01/24/18 12:39> Patient Problems: Active and Suspected Problems Pulmonary metastases (Acute) Subjective: Patient seen and examined. Patient denies increased shortness of breath beyond his baseline. Alert and oriented. Hospice consult recommended by oncology. Patient agreeable. - Physical Exam General: Alert, Oriented x3, Cooperative HEENT: Atraumatic, PERRLA, EOMI, Normocephalic Neck: Supple, No JVD, Negative Carotid Bruits Lungs: Diminished, - - Coarse crackles Cardiovascular: Regular Rhythm, Normal S1, Normal S2, No murmurs, Tachycardic Abdomen: Bowel Sounds Present, Soft, Non Tender, Non-Distended, Obese, Hernia Extremities: No clubbing, No cyanosis, - - Lymphedema bilateral lower extremities Skin: No rashes, No breakdown, - - Erythema right lower extremity Musculoskeletal: No Tenderness to Palpation of Joints or Extremities Neurological: Cranial nerves II-XII grossly intact, Neuro grossly intact Psych/Mental Status: Normal Affect, Appropriate Vital Signs Temp Pulse Resp BP Pulse Ox 98.2 F 94 36 H 127/78 H 98 01/24/18 11:34 01/24/18 11:34 01/24/18 11:34 01/24/18 11:34 01/24/18 11:34 Oxygen Flow Rate (L/min) 5 Oxygen Delivery Method Venturi Mask Weight: 255 lb 15.307 oz Body Mass Index (BMI) 39.2 Intake and Output for Last 24 Hours 01/22/18 01/23/18 01/24/18 23:59 23:59 23:59 Intake Total 0 / 0 90 / 90 Output Total 1890 / 1890 280 / 280 Balance -1890 / -1890 -190 / -190 Laboratory Tests Past 24 Hrs 01/23/18 01/23/18 01/23/18 12:00 12:00 12:00 WBC 11.0 RBC 5.72 Hgb 14.2 Hct 48.5 MCV 84.8 MCH 24.8 L MCHC 29.3 L RDW 17.4 H RDW Differential 53.5 H Plt Count 119 L Immature Gran % (Auto) 0.300 Neut % (Auto) 65.0 Lymph % (Auto) 9.4 L O'Brien % (Auto) 23.4 H Eos % (Auto) 1.7 Baso % (Auto) 0.2 Absolute Neuts (auto) 7.1 Absolute Lymphs (auto) 1.03 Total Counted Not Reportable Nucleated RBC % 0.8 Differential Comment Platelet Estimate ADEQUATE Plt Morphology Comment LARGE Hypochromasia Target Cells Absolute Retic 0.09 PT 15.2 H INR 1.2 APTT 38.8 H Specimen Type Sample Site pH Bicarbonate Actual POC Total CO2 Base Excess O2 Saturation ABG pCO2 ABG pO2 Bayron Test O2 Delivery Device Liter Flow Blood Gas Notified Whom Blood Gas Notified Time Sodium 137 Potassium 4.6 Chloride 102 Carbon Dioxide 29.0 Anion Gap 6 BUN 15 Creatinine 0.87 Estim Creat Clear Calc 68.85 Est GFR (MDRD) Af Amer 109 Est GFR (MDRD) Non-Af 90 BUN/Creatinine Ratio 17.3 Glucose 150 H Lactic Acid Calcium 8.5 Magnesium Total Bilirubin 0.60 AST 27 ALT 22 Alkaline Phosphatase 61 Troponin I 0.016 B-Natriuretic Peptide Total Protein 7.1 Albumin 3.0 L Globulin 4.1 Albumin/Globulin Ratio 0.7 L Lipase 101 TSH 01/23/18 01/23/18 01/23/18 12:00 12:00 13:09 WBC RBC Hgb Hct MCV MCH MCHC RDW RDW Differential Plt Count Immature Gran % (Auto) Neut % (Auto) Lymph % (Auto) O'Brien % (Auto) Eos % (Auto) Baso % (Auto) Absolute Neuts (auto) Absolute Lymphs (auto) Total Counted Nucleated RBC % Differential Comment Platelet Estimate Plt Morphology Comment Hypochromasia Target Cells Absolute Retic PT INR APTT Specimen Type ART Sample Site R Radial pH 7.31 L Bicarbonate Actual 28.9 H POC Total CO2 31 Base Excess 3 H O2 Saturation 85 L ABG pCO2 57.0 H ABG pO2 56 L Bayron Test POS O2 Delivery Device Nasal Can Liter Flow 5.0 Blood Gas Notified Whom ED MD Blood Gas Notified Time 1305 Sodium Potassium Chloride Carbon Dioxide Anion Gap BUN Creatinine Estim Creat Clear Calc Est GFR (MDRD) Af Amer Est GFR (MDRD) Non-Af BUN/Creatinine Ratio Glucose Lactic Acid 1.5 Calcium Magnesium Total Bilirubin AST ALT Alkaline Phosphatase Troponin I B-Natriuretic Peptide 396.7 H Total Protein Albumin Globulin Albumin/Globulin Ratio Lipase TSH 01/23/18 01/23/18 01/24/18 17:26 20:28 02:42 WBC 11.8 H RBC 5.65 Hgb 14.2 Hct 47.4 MCV 83.9 MCH 25.1 L MCHC 30.0 L RDW 17.4 H RDW Differential 53.0 H Plt Count 115 L Immature Gran % (Auto) 0.300 Neut % (Auto) 68.0 Lymph % (Auto) 15.7 L O'Brien % (Auto) 14.7 H Eos % (Auto) 1.1 Baso % (Auto) 0.2 Absolute Neuts (auto) 8.0 H Absolute Lymphs (auto) 1.85 Total Counted Not Reportable Nucleated RBC % 0.5 Differential Comment SCANNED Platelet Estimate ADEQUATE Plt Morphology Comment A Hypochromasia 3+ Target Cells 2+ Absolute Retic 0.06 PT INR APTT Specimen Type Sample Site pH Bicarbonate Actual POC Total CO2 Base Excess O2 Saturation ABG pCO2 ABG pO2 Bayron Test O2 Delivery Device Liter Flow Blood Gas Notified Whom Blood Gas Notified Time Sodium Potassium Chloride Carbon Dioxide Anion Gap BUN Creatinine Estim Creat Clear Calc Est GFR (MDRD) Af Amer Est GFR (MDRD) Non-Af BUN/Creatinine Ratio Glucose Lactic Acid Calcium Magnesium Total Bilirubin AST ALT Alkaline Phosphatase Troponin I 0.018 0.018 B-Natriuretic Peptide Total Protein Albumin Globulin Albumin/Globulin Ratio Lipase TSH 0.13 L 01/24/18 01/24/18 01/24/18 02:42 02:42 05:22 WBC RBC Hgb Hct MCV MCH MCHC RDW RDW Differential Plt Count Immature Gran % (Auto) Neut % (Auto) Lymph % (Auto) O'Brien % (Auto) Eos % (Auto) Baso % (Auto) Absolute Neuts (auto) Absolute Lymphs (auto) Total Counted Nucleated RBC % Differential Comment Platelet Estimate Plt Morphology Comment Hypochromasia Target Cells Absolute Retic PT INR APTT Specimen Type Sample Site pH Bicarbonate Actual POC Total CO2 Base Excess O2 Saturation ABG pCO2 ABG pO2 Bayron Test O2 Delivery Device Liter Flow Blood Gas Notified Whom Blood Gas Notified Time Sodium 139 144 Potassium 4.0 4.1 Chloride 104 104 Carbon Dioxide 28.0 31.0 Anion Gap 7 9 BUN 12 12 Creatinine 0.82 0.78 Estim Creat Clear Calc 73.05 59.90 Est GFR (MDRD) Af Amer 117 124 Est GFR (MDRD) Non-Af 97 102 BUN/Creatinine Ratio 14.7 15.4 Glucose 130 H 112 H Lactic Acid 1.7 Calcium 8.0 L 8.4 L Magnesium 1.9 Total Bilirubin AST ALT Alkaline Phosphatase Troponin I B-Natriuretic Peptide Total Protein Albumin Globulin Albumin/Globulin Ratio Lipase TSH 01/24/18 05:22 WBC 11.8 H RBC 5.53 Hgb 13.7 Hct 47.3 MCV 85.5 MCH 24.8 L MCHC 29.0 L RDW 17.5 H RDW Differential 54.8 H Plt Count 116 L Immature Gran % (Auto) 0.100 Neut % (Auto) 65.7 Lymph % (Auto) 18.7 L O'Brien % (Auto) 14.0 H Eos % (Auto) 1.4 Baso % (Auto) 0.1 Absolute Neuts (auto) 7.8 H Absolute Lymphs (auto) 2.21 Total Counted Not Reportable Nucleated RBC % 0.5 Differential Comment COMMENT Platelet Estimate Plt Morphology Comment Hypochromasia Target Cells Absolute Retic 0.05 PT INR APTT Specimen Type Sample Site pH Bicarbonate Actual POC Total CO2 Base Excess O2 Saturation ABG pCO2 ABG pO2 Bayron Test O2 Delivery Device Liter Flow Blood Gas Notified Whom Blood Gas Notified Time Sodium Potassium Chloride Carbon Dioxide Anion Gap BUN Creatinine Estim Creat Clear Calc Est GFR (MDRD) Af Amer Est GFR (MDRD) Non-Af BUN/Creatinine Ratio Glucose Lactic Acid Calcium Magnesium Total Bilirubin AST ALT Alkaline Phosphatase Troponin I B-Natriuretic Peptide Total Protein Albumin Globulin Albumin/Globulin Ratio Lipase TSH Medical Necessity - Tobacco Use Smoking Status: Former smoker Tobacco Use: Cigarettes Assessment/Plan All Active Problems Acute respiratory failure with hypoxia and hypercapnia (Acute) Pulmonary metastases (Acute) 1. Acute on chronic hypoxic respiratory failure suspect secondary to acute CHF vs metastatic thyroid cancer-chest x-ray on admission with small bilateral pleural effusions. Chest CTA showed no PE. Extensive abnormally enlarged mediastinal and perihilar lymph nodes suspicious for metastasis. Innumerable noncalcified nodules in both lung [place] consistent with pulmonary metastasis. Calcified coronary vessels. Low-density lesions within both lobes of the liver suspicious for metastasis. BNP 396. Patient reports he wears oxygen at night only at home. Continue supplement oxygen to maintain O2 at or above 90%. Bilateral lower extremity edema. Sumanth wraps bilateral lower extremities. Obtain echocardiogram. IV Lasix 40 mg twice daily. Strict I&O. Daily weight. Do not suspect RLE cellulitis. Obtain duplex US RLE to rule out DVT. Suspect this is chronic skin changes due to lymphedema. 2. Bilateral pleural effusions-suspect secondary to fluid overload. Tx as noted above. 3. Obstructive sleep apnea-CPAP nightly. 4. Hypothyroidism status post thyroid cancer with metastasis-continue synthroid regimen. TSH 0.13. 5. 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 Follows with Dr. Aquino, [facility]. Unclear how recently he has followed up. Consult Dr. Oro given concern for metastasis which patient denies being aware of. CT from July 2017 at [facility] showed interval increase in size of pulmonary masses and nodules with development of new nodules. Findings worsened from prior studies. Worsening of mediastinal and hilar lymphadenopathy. Multiple lesions in the liver. Oncology recommending hospice care given extensive metastasis. Hospice consult placed. 6. Chronic hemoptysis-patient reports this is been ongoing since 2011. PCP records show patient was hospitalized for recurrent hemoptysis in 2015 at outside facility. He underwent therapeutic bronchoscopy. Does not follow with pulmonary medicine. Has not seen primary care since 2013. 7. Status post insulinoma resection 8. Chronic thrombocytopenia-stable, trend CBC. 9. Obesity-encourage diet lifestyle modifications. DVT prophylaxis-Lovenox sc. CODE status: Pending hospice consult. This patient was seen by MARLYN Landaverde under the supervision of Dr. Baeza. <Roman Baeza - Last Filed: 01/24/18 13:41> - Physical Exam General: Alert, Cooperative, - - on TM. alert. non-verbal due to no Pessy-Faith valve. answers yes/no questions. HEENT: Atraumatic, Normocephalic Oral: Moist Mucosa, No Gingival or Mucosal Lesions/ Ulcerations Neck: - - trach in place Lungs: - Cardiovascular: Regular rate, Regular Rhythm, Normal S1, Normal S2 Abdomen: Bowel Sounds Present, Soft, Non Tender, Non-Distended, Obese Extremities: No Calf Tenderness, - Skin: No rashes, No breakdown, - Musculoskeletal: No Tenderness to Palpation of Joints or Extremities Psych/Mental Status: Normal Affect, Appropriate Vital Signs Temp Pulse Resp BP Pulse Ox 36.8 C 92 16 127/78 H 98 01/24/18 11:34 01/24/18 13:10 01/24/18 13:10 01/24/18 11:34 01/24/18 11:34 Oxygen Flow Rate (L/min) 5 Oxygen Delivery Method Venturi Mask Weight: 116.1 kg Body Mass Index (BMI) 39.2 Intake and Output for Last 24 Hours 01/22/18 01/23/18 01/24/18 23:59 23:59 23:59 Intake Total 0 / 0 90 / 90 Output Total 1889 280 / 280 Balance -1890 / -1890 -190 / -190 Laboratory Tests Past 24 Hrs 01/23/18 01/23/18 01/24/18 17:26 20:28 02:42 WBC 11.8 H RBC 5.65 Hgb 14.2 Hct 47.4 MCV 83.9 MCH 25.1 L MCHC 30.0 L RDW 17.4 H RDW Differential 53.0 H Plt Count 115 L Immature Gran % (Auto) 0.300 Neut % (Auto) 68.0 Lymph % (Auto) 15.7 L O'Brien % (Auto) 14.7 H Eos % (Auto) 1.1 Baso % (Auto) 0.2 Absolute Neuts (auto) 8.0 H Absolute Lymphs (auto) 1.85 Total Counted Not Reportable Nucleated RBC % 0.5 Differential Comment SCANNED Platelet Estimate ADEQUATE Plt Morphology Comment A Hypochromasia 3+ Target Cells 2+ Absolute Retic 0.06 Sodium Potassium Chloride Carbon Dioxide Anion Gap BUN Creatinine Estim Creat Clear Calc Est GFR (MDRD) Af Amer Est GFR (MDRD) Non-Af BUN/Creatinine Ratio Glucose Lactic Acid Calcium Magnesium Troponin I 0.018 0.018 TSH 0.13 L 01/24/18 01/24/18 01/24/18 02:42 02:42 05:22 WBC RBC Hgb Hct MCV MCH MCHC RDW RDW Differential Plt Count Immature Gran % (Auto) Neut % (Auto) Lymph % (Auto) O'Brien % (Auto) Eos % (Auto) Baso % (Auto) Absolute Neuts (auto) Absolute Lymphs (auto) Total Counted Nucleated RBC % Differential Comment Platelet Estimate Plt Morphology Comment Hypochromasia Target Cells Absolute Retic Sodium 139 144 Potassium 4.0 4.1 Chloride 104 104 Carbon Dioxide 28.0 31.0 Anion Gap 7 9 BUN 12 12 Creatinine 0.82 0.78 Estim Creat Clear Calc 73.05 59.90 Est GFR (MDRD) Af Amer 117 124 Est GFR (MDRD) Non-Af 97 102 BUN/Creatinine Ratio 14.7 15.4 Glucose 130 H 112 H Lactic Acid 1.7 Calcium 8.0 L 8.4 L Magnesium 1.9 Troponin I TSH 01/24/18 05:22 WBC 11.8 H RBC 5.53 Hgb 13.7 Hct 47.3 MCV 85.5 MCH 24.8 L MCHC 29.0 L RDW 17.5 H RDW Differential 54.8 H Plt Count 116 L Immature Gran % (Auto) 0.100 Neut % (Auto) 65.7 Lymph % (Auto) 18.7 L O'Brien % (Auto) 14.0 H Eos % (Auto) 1.4 Baso % (Auto) 0.1 Absolute Neuts (auto) 7.8 H Absolute Lymphs (auto) 2.21 Total Counted Not Reportable Nucleated RBC % 0.5 Differential Comment COMMENT Platelet Estimate Plt Morphology Comment Hypochromasia Target Cells Absolute Retic 0.05 Sodium Potassium Chloride Carbon Dioxide Anion Gap BUN Creatinine Estim Creat Clear Calc Est GFR (MDRD) Af Amer Est GFR (MDRD) Non-Af BUN/Creatinine Ratio Glucose Lactic Acid Calcium Magnesium Troponin I TSH CT chest reviewed and showed innumerable pulmonary metastases. Pleural effusion. Assessment/Plan Patient seen and examined independently. Data reviewed. I agree with the above note by the nurse practitioner. 1. Acute on chronic hypoxic and hypercapnic respiratory failure Due to metastatic lesions pleural effusions. May also be a component of CHF on top of that. Weight is down 4 kg since admission though this may not be completely accurate. Continue with IV Lasix Follow-up echocardiogram 2. Pulmonary metastases I feel is likely the biggest component to the patient's respiratory failure given the innumerable test disease and large size of them as well. Per history patient has had other pulmonary metastases had been treated with radiation Presumably this is due to his known history of metastatic papillary thyroid cancer 3. Suspected CHF exacerbation Unclear type Follow-up echocardiogram 4. Chronic hemoptysis Due to pulmonary metastases Monitor 5. DVT prophylaxis with Lovenox Advanced care planning: Spent 15 minutes discussing with the patient about his overall poor prognosis in the face of worsening thyroid cancer. Recommended hospice. Patient is in agreement to speak with hospice. Code Visit Inpatient E&M: 08789 Subs Hosp L3 Procedures: 34291 Advncd Care Plan 30 Min
--- NOTE | 2018-01-24 12:39 | PN_ITS ---
<Estrella Chirstine - Last Filed: 01/24/18 12:39> Patient Problems: Active and Suspected Problems Pulmonary metastases (Acute) Subjective: Patient seen and examined. Patient denies increased shortness of breath beyond his baseline. Alert and oriented. Hospice consult recommended by oncology. Patient agreeable. - Physical Exam General: Alert, Oriented x3, Cooperative HEENT: Atraumatic, PERRLA, EOMI, Normocephalic Neck: Supple, No JVD, Negative Carotid Bruits Lungs: Diminished, - - Coarse crackles Cardiovascular: Regular Rhythm, Normal S1, Normal S2, No murmurs, Tachycardic Abdomen: Bowel Sounds Present, Soft, Non Tender, Non-Distended, Obese, Hernia Extremities: No clubbing, No cyanosis, - - Lymphedema bilateral lower extremities Skin: No rashes, No breakdown, - - Erythema right lower extremity Musculoskeletal: No Tenderness to Palpation of Joints or Extremities Neurological: Cranial nerves II-XII grossly intact, Neuro grossly intact Psych/Mental Status: Normal Affect, Appropriate Vital Signs Temp Pulse Resp BP Pulse Ox 98.2 F 94 36 H 127/78 H 98 01/24/18 11:34 01/24/18 11:34 01/24/18 11:34 01/24/18 11:34 01/24/18 11:34 Oxygen Flow Rate (L/min) 5 Oxygen Delivery Method Venturi Mask Weight: 255 lb 15.307 oz Body Mass Index (BMI) 39.2 Intake and Output for Last 24 Hours 01/22/18 01/23/18 01/24/18 23:59 23:59 23:59 Intake Total 0 / 0 90 / 90 Output Total 1890 / 1890 280 / 280 Balance -1890 / -1890 -190 / -190 Laboratory Tests Past 24 Hrs 01/23/18 01/23/18 01/23/18 12:00 12:00 12:00 WBC 11.0 RBC 5.72 Hgb 14.2 Hct 48.5 MCV 84.8 MCH 24.8 L MCHC 29.3 L RDW 17.4 H RDW Differential 53.5 H Plt Count 119 L Immature Gran % (Auto) 0.300 Neut % (Auto) 65.0 Lymph % (Auto) 9.4 L [place] % (Auto) 23.4 H Eos % (Auto) 1.7 Baso % (Auto) 0.2 Absolute Neuts (auto) 7.1 Absolute Lymphs (auto) 1.03 Total Counted Not Reportable Nucleated RBC % 0.8 Differential Comment Platelet Estimate ADEQUATE Plt Morphology Comment LARGE Hypochromasia Target Cells Absolute Retic 0.09 PT 15.2 H INR 1.2 APTT 38.8 H Specimen Type Sample Site pH Bicarbonate Actual POC Total CO2 Base Excess O2 Saturation ABG pCO2 ABG pO2 Bayron Test O2 Delivery Device Liter Flow Blood Gas Notified Whom Blood Gas Notified Time Sodium 137 Potassium 4.6 Chloride 102 Carbon Dioxide 29.0 Anion Gap 6 BUN 15 Creatinine 0.87 Estim Creat Clear Calc 68.85 Est GFR (MDRD) Af Amer 109 Est GFR (MDRD) Non-Af 90 BUN/Creatinine Ratio 17.3 Glucose 150 H Lactic Acid Calcium 8.5 Magnesium Total Bilirubin 0.60 AST 27 ALT 22 Alkaline Phosphatase 61 Troponin I 0.016 B-Natriuretic Peptide Total Protein 7.1 Albumin 3.0 L Globulin 4.1 Albumin/Globulin Ratio 0.7 L Lipase 101 TSH 01/23/18 01/23/18 01/23/18 12:00 12:00 13:09 WBC RBC Hgb Hct MCV MCH MCHC RDW RDW Differential Plt Count Immature Gran % (Auto) Neut % (Auto) Lymph % (Auto) [place] % (Auto) Eos % (Auto) Baso % (Auto) Absolute Neuts (auto) Absolute Lymphs (auto) Total Counted Nucleated RBC % Differential Comment Platelet Estimate Plt Morphology Comment Hypochromasia Target Cells Absolute Retic PT INR APTT Specimen Type ART Sample Site R Radial pH 7.31 L Bicarbonate Actual 28.9 H POC Total CO2 31 Base Excess 3 H O2 Saturation 85 L ABG pCO2 57.0 H ABG pO2 56 L Bayron Test POS O2 Delivery Device Nasal Can Liter Flow 5.0 Blood Gas Notified Whom ED MD Blood Gas Notified Time 1305 Sodium Potassium Chloride Carbon Dioxide Anion Gap BUN Creatinine Estim Creat Clear Calc Est GFR (MDRD) Af Amer Est GFR (MDRD) Non-Af BUN/Creatinine Ratio Glucose Lactic Acid 1.5 Calcium Magnesium Total Bilirubin AST ALT Alkaline Phosphatase Troponin I B-Natriuretic Peptide 396.7 H Total Protein Albumin Globulin Albumin/Globulin Ratio Lipase TSH 01/23/18 01/23/18 01/24/18 17:26 20:28 02:42 WBC 11.8 H RBC 5.65 Hgb 14.2 Hct 47.4 MCV 83.9 MCH 25.1 L MCHC 30.0 L RDW 17.4 H RDW Differential 53.0 H Plt Count 115 L Immature Gran % (Auto) 0.300 Neut % (Auto) 68.0 Lymph % (Auto) 15.7 L [place] % (Auto) 14.7 H Eos % (Auto) 1.1 Baso % (Auto) 0.2 Absolute Neuts (auto) 8.0 H Absolute Lymphs (auto) 1.85 Total Counted Not Reportable Nucleated RBC % 0.5 Differential Comment SCANNED Platelet Estimate ADEQUATE Plt Morphology Comment A Hypochromasia 3+ Target Cells 2+ Absolute Retic 0.06 PT INR APTT Specimen Type Sample Site pH Bicarbonate Actual POC Total CO2 Base Excess O2 Saturation ABG pCO2 ABG pO2 Bayron Test O2 Delivery Device Liter Flow Blood Gas Notified Whom Blood Gas Notified Time Sodium Potassium Chloride Carbon Dioxide Anion Gap BUN Creatinine Estim Creat Clear Calc Est GFR (MDRD) Af Amer Est GFR (MDRD) Non-Af BUN/Creatinine Ratio Glucose Lactic Acid Calcium Magnesium Total Bilirubin AST ALT Alkaline Phosphatase Troponin I 0.018 0.018 B-Natriuretic Peptide Total Protein Albumin Globulin Albumin/Globulin Ratio Lipase TSH 0.13 L 01/24/18 01/24/18 01/24/18 02:42 02:42 05:22 WBC RBC Hgb Hct MCV MCH MCHC RDW RDW Differential Plt Count Immature Gran % (Auto) Neut % (Auto) Lymph % (Auto) [place] % (Auto) Eos % (Auto) Baso % (Auto) Absolute Neuts (auto) Absolute Lymphs (auto) Total Counted Nucleated RBC % Differential Comment Platelet Estimate Plt Morphology Comment Hypochromasia Target Cells Absolute Retic PT INR APTT Specimen Type Sample Site pH Bicarbonate Actual POC Total CO2 Base Excess O2 Saturation ABG pCO2 ABG pO2 Bayron Test O2 Delivery Device Liter Flow Blood Gas Notified Whom Blood Gas Notified Time Sodium 139 144 Potassium 4.0 4.1 Chloride 104 104 Carbon Dioxide 28.0 31.0 Anion Gap 7 9 BUN 12 12 Creatinine 0.82 0.78 Estim Creat Clear Calc 73.05 59.90 Est GFR (MDRD) Af Amer 117 124 Est GFR (MDRD) Non-Af 97 102 BUN/Creatinine Ratio 14.7 15.4 Glucose 130 H 112 H Lactic Acid 1.7 Calcium 8.0 L 8.4 L Magnesium 1.9 Total Bilirubin AST ALT Alkaline Phosphatase Troponin I B-Natriuretic Peptide Total Protein Albumin Globulin Albumin/Globulin Ratio Lipase TSH 01/24/18 05:22 WBC 11.8 H RBC 5.53 Hgb 13.7 Hct 47.3 MCV 85.5 MCH 24.8 L MCHC 29.0 L RDW 17.5 H RDW Differential 54.8 H Plt Count 116 L Immature Gran % (Auto) 0.100 Neut % (Auto) 65.7 Lymph % (Auto) 18.7 L [place] % (Auto) 14.0 H Eos % (Auto) 1.4 Baso % (Auto) 0.1 Absolute Neuts (auto) 7.8 H Absolute Lymphs (auto) 2.21 Total Counted Not Reportable Nucleated RBC % 0.5 Differential Comment COMMENT Platelet Estimate Plt Morphology Comment Hypochromasia Target Cells Absolute Retic 0.05 PT INR APTT Specimen Type Sample Site pH Bicarbonate Actual POC Total CO2 Base Excess O2 Saturation ABG pCO2 ABG pO2 Bayron Test O2 Delivery Device Liter Flow Blood Gas Notified Whom Blood Gas Notified Time Sodium Potassium Chloride Carbon Dioxide Anion Gap BUN Creatinine Estim Creat Clear Calc Est GFR (MDRD) Af Amer Est GFR (MDRD) Non-Af BUN/Creatinine Ratio Glucose Lactic Acid Calcium Magnesium Total Bilirubin AST ALT Alkaline Phosphatase Troponin I B-Natriuretic Peptide Total Protein Albumin Globulin Albumin/Globulin Ratio Lipase TSH Medical Necessity - Tobacco Use Smoking Status: Former smoker Tobacco Use: Cigarettes Assessment/Plan All Active Problems Acute respiratory failure with hypoxia and hypercapnia (Acute) Pulmonary metastases (Acute) 1. Acute on chronic hypoxic respiratory failure suspect secondary to acute CHF vs metastatic thyroid cancer-chest x-ray on admission with small bilateral pleural effusions. Chest CTA showed no PE. Extensive abnormally enlarged mediastinal and perihilar lymph nodes suspicious for metastasis. Innumerable noncalcified nodules in both lung [place] consistent with pulmonary metastasis. Calcified coronary vessels. Low-density lesions within both lobes of the liver suspicious for metastasis. BNP 396. Patient reports he wears oxygen at night only at home. Continue supplement oxygen to maintain O2 at or above 90%. Bilateral lower extremity edema. Sumanth wraps bilateral lower extremities. Obtain echocardiogram. IV Lasix 40 mg twice daily. Strict I&O. Daily weight. Do not suspect RLE cellulitis. Obtain duplex US RLE to rule out DVT. Suspect this is chronic skin changes due to lymphedema. 2. Bilateral pleural effusions-suspect secondary to fluid overload. Tx as noted above. 3. Obstructive sleep apnea-CPAP nightly. 4. Hypothyroidism status post thyroid cancer with metastasis-continue synthroid regimen. TSH 0.13. 5. 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 Follows with Dr. Aquino, [facility] Oncology. Unclear how recently he has followed up. Consult Dr. Oro given concern for metastasis which patient denies being aware of. CT from July 2017 at [facility] showed interval increase in size of pulmonary masses and nodules with development of new nodules. Findings worsened from prior studies. Worsening of mediastinal and hilar lymphadenopathy. Multiple lesions in the liver. Oncology recommending hospice care given extensive metastasis. Hospice consult placed. 6. Chronic hemoptysis-patient reports this is been ongoing since 2011. PCP records show patient was hospitalized for recurrent hemoptysis in 2015 at outside facility. He underwent therapeutic bronchoscopy. Does not follow with pulmonary medicine. Has not seen primary care since 2013. 7. Status post insulinoma resection 8. Chronic thrombocytopenia-stable, trend CBC. 9. Obesity-encourage diet lifestyle modifications. DVT prophylaxis-Lovenox sc. CODE status: Pending hospice consult. This patient was seen by MARLYN Landaverde under the supervision of Dr. Baeza. <Roman Baeza - Last Filed: 01/24/18 13:41> - Physical Exam General: Alert, Cooperative, - - on TM. alert. non-verbal due to no Pessy-Faith valve. answers yes/no questions. HEENT: Atraumatic, Normocephalic Oral: Moist Mucosa, No Gingival or Mucosal Lesions/ Ulcerations Neck: - - trach in place Lungs: - Cardiovascular: Regular rate, Regular Rhythm, Normal S1, Normal S2 Abdomen: Bowel Sounds Present, Soft, Non Tender, Non-Distended, Obese Extremities: No Calf Tenderness, - Skin: No rashes, No breakdown, - Musculoskeletal: No Tenderness to Palpation of Joints or Extremities Psych/Mental Status: Normal Affect, Appropriate Vital Signs Temp Pulse Resp BP Pulse Ox 36.8 C 92 16 127/78 H 98 01/24/18 11:34 01/24/18 13:10 01/24/18 13:10 01/24/18 11:34 01/24/18 11:34 Oxygen Flow Rate (L/min) 5 Oxygen Delivery Method Venturi Mask Weight: 116.1 kg Body Mass Index (BMI) 39.2 Intake and Output for Last 24 Hours 01/22/18 01/23/18 01/24/18 23:59 23:59 23:59 Intake Total 0 / 0 90 / 90 Output Total 1889 280 / 280 Balance -1890 / -1890 -190 / -190 Laboratory Tests Past 24 Hrs 01/23/18 01/23/18 01/24/18 17:26 20:28 02:42 WBC 11.8 H RBC 5.65 Hgb 14.2 Hct 47.4 MCV 83.9 MCH 25.1 L MCHC 30.0 L RDW 17.4 H RDW Differential 53.0 H Plt Count 115 L Immature Gran % (Auto) 0.300 Neut % (Auto) 68.0 Lymph % (Auto) 15.7 L [place] % (Auto) 14.7 H Eos % (Auto) 1.1 Baso % (Auto) 0.2 Absolute Neuts (auto) 8.0 H Absolute Lymphs (auto) 1.85 Total Counted Not Reportable Nucleated RBC % 0.5 Differential Comment SCANNED Platelet Estimate ADEQUATE Plt Morphology Comment A Hypochromasia 3+ Target Cells 2+ Absolute Retic 0.06 Sodium Potassium Chloride Carbon Dioxide Anion Gap BUN Creatinine Estim Creat Clear Calc Est GFR (MDRD) Af Amer Est GFR (MDRD) Non-Af BUN/Creatinine Ratio Glucose Lactic Acid Calcium Magnesium Troponin I 0.018 0.018 TSH 0.13 L 01/24/18 01/24/18 01/24/18 02:42 02:42 05:22 WBC RBC Hgb Hct MCV MCH MCHC RDW RDW Differential Plt Count Immature Gran % (Auto) Neut % (Auto) Lymph % (Auto) [place] % (Auto) Eos % (Auto) Baso % (Auto) Absolute Neuts (auto) Absolute Lymphs (auto) Total Counted Nucleated RBC % Differential Comment Platelet Estimate Plt Morphology Comment Hypochromasia Target Cells Absolute Retic Sodium 139 144 Potassium 4.0 4.1 Chloride 104 104 Carbon Dioxide 28.0 31.0 Anion Gap 7 9 BUN 12 12 Creatinine 0.82 0.78 Estim Creat Clear Calc 73.05 59.90 Est GFR (MDRD) Af Amer 117 124 Est GFR (MDRD) Non-Af 97 102 BUN/Creatinine Ratio 14.7 15.4 Glucose 130 H 112 H Lactic Acid 1.7 Calcium 8.0 L 8.4 L Magnesium 1.9 Troponin I TSH 01/24/18 05:22 WBC 11.8 H RBC 5.53 Hgb 13.7 Hct 47.3 MCV 85.5 MCH 24.8 L MCHC 29.0 L RDW 17.5 H RDW Differential 54.8 H Plt Count 116 L Immature Gran % (Auto) 0.100 Neut % (Auto) 65.7 Lymph % (Auto) 18.7 L [place] % (Auto) 14.0 H Eos % (Auto) 1.4 Baso % (Auto) 0.1 Absolute Neuts (auto) 7.8 H Absolute Lymphs (auto) 2.21 Total Counted Not Reportable Nucleated RBC % 0.5 Differential Comment COMMENT Platelet Estimate Plt Morphology Comment Hypochromasia Target Cells Absolute Retic 0.05 Sodium Potassium Chloride Carbon Dioxide Anion Gap BUN Creatinine Estim Creat Clear Calc Est GFR (MDRD) Af Amer Est GFR (MDRD) Non-Af BUN/Creatinine Ratio Glucose Lactic Acid Calcium Magnesium Troponin I TSH CT chest reviewed and showed innumerable pulmonary metastases. Pleural effusion. Assessment/Plan Patient seen and examined independently. Data reviewed. I agree with the above note by the nurse practitioner. 1. Acute on chronic hypoxic and hypercapnic respiratory failure * Due to metastatic lesions pleural effusions. * May also be a component of CHF on top of that. * Weight is down 4 kg since admission though this may not be completely accurate. * Continue with IV Lasix * Follow-up echocardiogram 2. Pulmonary metastases * I feel is likely the biggest component to the patient's respiratory failure given the innumerable test disease and large size of them as well. * Per history patient has had other pulmonary metastases had been treated with radiation * Presumably this is due to his known history of metastatic papillary thyroid cancer 3. Suspected CHF exacerbation * Unclear type * Follow-up echocardiogram 4. Chronic hemoptysis * Due to pulmonary metastases * Monitor 5. DVT prophylaxis with Lovenox Advanced care planning: Spent 15 minutes discussing with the patient about his overall poor prognosis in the face of worsening thyroid cancer. Recommended hospice. Patient is in agreement to speak with hospice. Code Visit Inpatient E&M: 99211 Subs Hosp L3 Procedures: 02138 Advncd Care Plan 30 Min
--- NOTE | 2018-01-24 13:58 | CASEMGMT ---
Addendum entered by Lina Ma 01/24/18 15:03: Patient wears O2 at night at home. He will require O2 to get home. SW will have to talk with family to see if they have portables and if not we will need to get him set up with O2. Lina JONES CAR REPAIRMAN Original Note: Addendum entered by Lina Ma 01/24/18 14:29: SOHA De La Rosa spoke with patient's daughter and . They agreed to Hospice. Daughter said [facility] fine. SW explained SW will make a referral and they will call her to schedule a time to meet. Patient's appears to be confused so it would be best if they spoke with patient's daughter. SW called [facility] with referral. SW spoke with Andie and faxed over referral. SW let her know the plan is to go home today. SW notified SOHA Yousif. Lina JONES CAR REPAIRMAN Original Note: Per physician patient is in agreement with Hospice. SW spoke with patient's and daughter when they arrived. Patient's spoke with the Cancer Specialist on the phone. She said he can go home today. SW explained that the physicians are recommending Hospice. Patient's daughter said they do not want Hospice right now. SW had to again repeat this. CHIP then spoke with patient's daughter in the hallway per her request. SW explained the physicians feel Hospice is appropriate as there is nothing more they can do for his Cancer. She said they have been saying that for a long time now. She said she would take a number for Hospice and when they are ready they can call. She then started to ask SW medical questions. CHIP told her SW will see if the physician can come and talk with them. CHIP spoke with Estrella HOYOS and she will talk with Dr Baeza. Lina HICKS
--- NOTE | 2018-01-24 14:22 | PCM.DC ---
- Discharge Diagnoses Current Active Problems: Current Active and Chronic Problems Pulmonary metastases (Acute) Papillary thyroid carcinoma (Chronic) Hypothyroidism (Chronic) ASHLEIGH (obstructive sleep apnea) (Chronic) Chronic respiratory failure with hypoxia (Chronic) Wears O2 at night only. You will use the following diet at home:: No restrictions Discharge Activity: Return to Normal Activity Allergies/Adverse Reactions: Allergies No Known Allergies Allergy (Verified 01/23/18 11:43) Medications to take at Discharge Levothyroxine [Synthroid] 137 mcg PO MOFR 01/23/18 Levothyroxine [Synthroid] 274 mcg PO SUTUWETHSA 01/23/18 traMADol [Ultram (G)] 50 mg PO BID 01/23/18 Primary Care Physician: Shan Bonilla MD [Primary Care Provider] - Please follow up with your Primary Care Physician in: As needed Test Results: Test results from this visit will be discussed in further detail at your follow-up appointment, if applicable. Please Follow Up With: [facility] When: Established at [place] Proposed Discharge Date: 01/24/18
--- NOTE | 2018-01-24 14:24 | PCM.DC.SUM ---
<Estrella Christine - Last Filed: 01/24/18 14:40> Discharge Date and Diagnosis Date of Admission: 01/23/18 Date of Discharge: 01/24/18 - Primary Discharge Diagnosis Active and Suspected Problems 1. Acute on chronic hypoxic respiratory failure suspect secondary to acute CHF vs metastatic thyroid cancer 2. Bilateral pleural effusions 3. 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 Hospice transition - Secondary Discharge Diagnosis Chronic Problems Papillary thyroid carcinoma (Chronic) Hypothyroidism (Chronic) ASHLEIGH (obstructive sleep apnea) (Chronic) Chronic respiratory failure with hypoxia (Chronic) Wears O2 at night only. Hospital Course and Treatment Imaging Results: Diagnostic Data Chest CTA 01/23/18 13:13 IMPRESSION: No demonstrated PE, or thoracic aortic aneurysm or dissection. Extensive abnormally enlarged mediastinal and perihilar lymph nodes suspicious for metastasis Innumerable noncalcified nodules in both lung [place] consistent with pulmonary metastasis Chronic interstitial changes in both lung [place] Degenerative bony changes Calcified coronary vessels Low-density lesions within both lobes of the liver suspicious for metastasis Electronically Signed: Abdoulaye Barrientos MD at 14:26 EDT , Service support , Chest X-Ray 01/24/18 01:51 IMPRESSION: Bilateral infiltrates worse on the right side unchanged as prior examination. Small bilateral pleural effusions. Electronically Signed: Alvaro Barrera MD at 2:44 EDT Tel , Service support , Dr. Oro- Oncology Operations: None Procedures: 2-D Echocardiogram Summary of Care Provided: The patient is a 78 year old M admitted 01/23/2018 due to shortness of breath, hypoxia, lower extremity swelling. 1. Acute on chronic hypoxic respiratory failure suspect secondary to acute CHF vs metastatic thyroid cancer-chest x-ray on admission with small bilateral pleural effusions. Chest CTA showed no PE. Extensive abnormally enlarged mediastinal and perihilar lymph nodes suspicious for metastasis. Innumerable noncalcified nodules in both lung [place] consistent with pulmonary metastasis. Calcified coronary vessels. Low-density lesions within both lobes of the liver suspicious for metastasis. BNP 396. Patient reports he wears oxygen at night only at home. Continue supplement oxygen to maintain O2 at or above 90%. Bilateral lower extremity edema. Sumanth wraps bilateral lower extremities. Echo pending at CT. Suspect that majority of current sx are related to metastatic CA. Hospice transition. 2. Bilateral pleural effusions 3. Obstructive sleep apnea-CPAP nightly. 4. Hypothyroidism status post thyroid cancer with metastasis-on synthroid regimen. TSH 0.13. 5. 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 Follows with Dr. Aquino, [facility] Oncology. Unclear how recently he has followed up. Consult Dr. Oro given concern for metastasis which patient denies being aware of. CT from July 2017 at [facility] showed interval increase in size of pulmonary masses and nodules with development of new nodules. Findings worsened from prior studies. Worsening of mediastinal and hilar lymphadenopathy. Multiple lesions in the liver. Oncology recommending hospice care given extensive metastasis. Patient and family agreeable to hospice services. 6. Chronic hemoptysis-patient reports this is been ongoing since 2011. PCP records show patient was hospitalized for recurrent hemoptysis in 2016 at outside facility. He underwent therapeutic bronchoscopy. Does not follow with pulmonary medicine. Has not seen primary care since 2013. 7. Status post insulinoma resection 8. Chronic thrombocytopenia 9. Obesity General: Alert, Oriented x3, Cooperative HEENT: Atraumatic, PERRLA, EOMI, Normocephalic Neck: Supple, No JVD, Negative Carotid Bruits Lungs: Diminished, - - Coarse crackles Cardiovascular: Regular Rhythm, Normal S1, Normal S2, No murmurs, Tachycardic Abdomen: Bowel Sounds Present, Soft, Non Tender, Non-Distended, Obese, Hernia Extremities: No clubbing, No cyanosis, - - Lymphedema bilateral lower extremities Skin: No rashes, No breakdown, - - Erythema right lower extremity Musculoskeletal: No Tenderness to Palpation of Joints or Extremities Neurological: Cranial nerves II-XII grossly intact, Neuro grossly intact Psych/Mental Status: Normal Affect, Appropriate CODE status: Discussed in depth with patient and patient's and daughter. Patient does not want any aggressive treatment or life-sustaining measures. DNR CC with hospice transition at discharge. Patient seen exam prior to discharge. Physical assessment as noted above. Patient discharged home with [facility]. This patient was seen by MARLYN Landaverde under the supervision of Dr. Baeza. - Physical Exam Vital Signs Temp Pulse Resp BP Pulse Ox 98.2 F 92 16 127/78 H 98 01/24/18 11:34 01/24/18 13:10 01/24/18 13:10 01/24/18 11:34 01/24/18 11:34 Oxygen Flow Rate (L/min) 5 Oxygen Delivery Method Venturi Mask Weight: 255 lb 15.307 oz Body Mass Index (BMI) 39.2 Intake and Output for Last 24 Hours 01/22/18 01/23/18 01/24/18 23:59 23:59 23:59 Intake Total 0 / 0 90 / 90 Output Total 1890 / 1890 280 / 280 Balance -1890 / -1890 -190 / -190 Laboratory Tests Past 24 Hrs 01/23/18 01/23/18 01/24/18 17:26 20:28 02:42 WBC 11.8 H RBC 5.65 Hgb 14.2 Hct 47.4 MCV 83.9 MCH 25.1 L MCHC 30.0 L RDW 17.4 H RDW Differential 53.0 H Plt Count 115 L Immature Gran % (Auto) 0.300 Neut % (Auto) 68.0 Lymph % (Auto) 15.7 L [place] % (Auto) 14.7 H Eos % (Auto) 1.1 Baso % (Auto) 0.2 Absolute Neuts (auto) 8.0 H Absolute Lymphs (auto) 1.85 Total Counted Not Reportable Nucleated RBC % 0.5 Differential Comment SCANNED Platelet Estimate ADEQUATE Plt Morphology Comment A Hypochromasia 3+ Target Cells 2+ Absolute Retic 0.06 Sodium Potassium Chloride Carbon Dioxide Anion Gap BUN Creatinine Estim Creat Clear Calc Est GFR (MDRD) Af Amer Est GFR (MDRD) Non-Af BUN/Creatinine Ratio Glucose Lactic Acid Calcium Magnesium Troponin I 0.018 0.018 TSH 0.13 L 01/24/18 01/24/18 01/24/18 02:42 02:42 05:22 WBC RBC Hgb Hct MCV MCH MCHC RDW RDW Differential Plt Count Immature Gran % (Auto) Neut % (Auto) Lymph % (Auto) [place] % (Auto) Eos % (Auto) Baso % (Auto) Absolute Neuts (auto) Absolute Lymphs (auto) Total Counted Nucleated RBC % Differential Comment Platelet Estimate Plt Morphology Comment Hypochromasia Target Cells Absolute Retic Sodium 139 144 Potassium 4.0 4.1 Chloride 104 104 Carbon Dioxide 28.0 31.0 Anion Gap 7 9 BUN 12 12 Creatinine 0.82 0.78 Estim Creat Clear Calc 73.05 59.90 Est GFR (MDRD) Af Amer 117 124 Est GFR (MDRD) Non-Af 97 102 BUN/Creatinine Ratio 14.7 15.4 Glucose 130 H 112 H Lactic Acid 1.7 Calcium 8.0 L 8.4 L Magnesium 1.9 Troponin I TSH 01/24/18 05:22 WBC 11.8 H RBC 5.53 Hgb 13.7 Hct 47.3 MCV 85.5 MCH 24.8 L MCHC 29.0 L RDW 17.5 H RDW Differential 54.8 H Plt Count 116 L Immature Gran % (Auto) 0.100 Neut % (Auto) 65.7 Lymph % (Auto) 18.7 L [place] % (Auto) 14.0 H Eos % (Auto) 1.4 Baso % (Auto) 0.1 Absolute Neuts (auto) 7.8 H Absolute Lymphs (auto) 2.21 Total Counted Not Reportable Nucleated RBC % 0.5 Differential Comment COMMENT Platelet Estimate Plt Morphology Comment Hypochromasia Target Cells Absolute Retic 0.05 Sodium Potassium Chloride Carbon Dioxide Anion Gap BUN Creatinine Estim Creat Clear Calc Est GFR (MDRD) Af Amer Est GFR (MDRD) Non-Af BUN/Creatinine Ratio Glucose Lactic Acid Calcium Magnesium Troponin I TSH Discharge Activity: Return to Normal Activity Home Medications: Medications to take at Discharge Levothyroxine [Synthroid] 137 mcg PO MOFR 01/23/18 Levothyroxine [Synthroid] 274 mcg PO SUTUWETHSA 01/23/18 traMADol [Ultram (G)] 50 mg PO BID 01/23/18 Primary Care Physician: Shan Bonilla MD [Primary Care Provider] - Please follow up with your Primary Care Physician in: As needed Please Follow Up With: [facility] When: Established at [place] Disposition: Home with Hospice Minutes spent on discharge:: 35 Patient Condition:: Fair Medical Necessity - Tobacco Use Smoking Status: Former smoker Tobacco Use: Cigarettes Meaningful Use Info Meaningful Use Diagnoses (Choose all that apply): None applicable <Roman Baeza - Last Filed: 01/24/18 15:05> Discharge Date and Diagnosis - Secondary Discharge Diagnosis Chronic Problems Papillary thyroid carcinoma (Chronic) Hypothyroidism (Chronic) ASHLEIGH (obstructive sleep apnea) (Chronic) Chronic respiratory failure with hypoxia (Chronic) Wears O2 at night only. Hospital Course and Treatment Operations: None Procedures: 2-D Echocardiogram Summary of Care Provided: Patient seen and examined independently. Data reviewed. I agree with the above note by the nurse practitioner. The patient is a 78 year old M with shortness of breath and hypoxia. 1. Acute on chronic hypoxic and hypercapnic respiratory failure Due to metastatic lesions pleural effusions. May also be a component of CHF on top of that. Weight is down 4 kg since admission though this may not be completely accurate. received IV Lasix Follow-up echocardiogram 2. Pulmonary metastases I feel is likely the biggest component to the patient's respiratory failure given the innumerable test disease and large size of them as well. Per history patient has had other pulmonary metastases had been treated with radiation Presumably this is due to his known history of metastatic papillary thyroid cancer 3. Suspected CHF exacerbation Unclear type Follow-up echocardiogram 4. Chronic hemoptysis Due to pulmonary metastases Monitor Patient family met with hospice. Plan is for the patient be discharged home with hospice. [] - Physical Exam Vital Signs Temp Pulse Resp BP Pulse Ox 36.8 C 92 16 127/78 H 98 01/24/18 11:34 01/24/18 13:10 01/24/18 13:10 01/24/18 11:34 01/24/18 11:34 Oxygen Flow Rate (L/min) 5 Oxygen Delivery Method Venturi Mask Weight: 116.1 kg Body Mass Index (BMI) 39.2 Intake and Output for Last 24 Hours 01/22/18 01/23/18 01/24/18 23:59 23:59 23:59 Intake Total 0 / 0 90 / 90 Output Total 1890 / 1890 280 / 280 Balance -1890 / -1890 -190 / -190 Laboratory Tests Past 24 Hrs 01/23/18 01/23/18 01/24/18 17:26 20:28 02:42 WBC 11.8 H RBC 5.65 Hgb 14.2 Hct 47.4 MCV 83.9 MCH 25.1 L MCHC 30.0 L RDW 17.4 H RDW Differential 53.0 H Plt Count 115 L Immature Gran % (Auto) 0.300 Neut % (Auto) 68.0 Lymph % (Auto) 15.7 L [place] % (Auto) 14.7 H Eos % (Auto) 1.1 Baso % (Auto) 0.2 Absolute Neuts (auto) 8.0 H Absolute Lymphs (auto) 1.85 Total Counted Not Reportable Nucleated RBC % 0.5 Differential Comment SCANNED Platelet Estimate ADEQUATE Plt Morphology Comment A Hypochromasia 3+ Target Cells 2+ Absolute Retic 0.06 Sodium Potassium Chloride Carbon Dioxide Anion Gap BUN Creatinine Estim Creat Clear Calc Est GFR (MDRD) Af Amer Est GFR (MDRD) Non-Af BUN/Creatinine Ratio Glucose Lactic Acid Calcium Magnesium Troponin I 0.018 0.018 TSH 0.13 L 01/24/18 01/24/18 01/24/18 02:42 02:42 05:22 WBC RBC Hgb Hct MCV MCH MCHC RDW RDW Differential Plt Count Immature Gran % (Auto) Neut % (Auto) Lymph % (Auto) [place] % (Auto) Eos % (Auto) Baso % (Auto) Absolute Neuts (auto) Absolute Lymphs (auto) Total Counted Nucleated RBC % Differential Comment Platelet Estimate Plt Morphology Comment Hypochromasia Target Cells Absolute Retic Sodium 139 144 Potassium 4.0 4.1 Chloride 104 104 Carbon Dioxide 28.0 31.0 Anion Gap 7 9 BUN 12 12 Creatinine 0.82 0.78 Estim Creat Clear Calc 73.05 59.90 Est GFR (MDRD) Af Amer 117 124 Est GFR (MDRD) Non-Af 97 102 BUN/Creatinine Ratio 14.7 15.4 Glucose 130 H 112 H Lactic Acid 1.7 Calcium 8.0 L 8.4 L Magnesium 1.9 Troponin I TSH 01/24/18 05:22 WBC 11.8 H RBC 5.53 Hgb 13.7 Hct 47.3 MCV 85.5 MCH 24.8 L MCHC 29.0 L RDW 17.5 H RDW Differential 54.8 H Plt Count 116 L Immature Gran % (Auto) 0.100 Neut % (Auto) 65.7 Lymph % (Auto) 18.7 L [place] % (Auto) 14.0 H Eos % (Auto) 1.4 Baso % (Auto) 0.1 Absolute Neuts (auto) 7.8 H Absolute Lymphs (auto) 2.21 Total Counted Not Reportable Nucleated RBC % 0.5 Differential Comment COMMENT Platelet Estimate Plt Morphology Comment Hypochromasia Target Cells Absolute Retic 0.05 Sodium Potassium Chloride Carbon Dioxide Anion Gap BUN Creatinine Estim Creat Clear Calc Est GFR (MDRD) Af Amer Est GFR (MDRD) Non-Af BUN/Creatinine Ratio Glucose Lactic Acid Calcium Magnesium Troponin I TSH Discharge Activity: Return to Normal Activity Disposition: Home with Hospice Minutes spent on discharge:: 35 Patient Condition:: Poor Meaningful Use Info Meaningful Use Diagnoses (Choose all that apply): None applicable Code Visit Inpatient E&M: 85773 Disch Hosp
--- NOTE | 2018-01-24 14:30 | DS.PCM_ITS ---
<Estrella Christine - Last Filed: 01/24/18 14:40> Discharge Date and Diagnosis Date of Admission: 01/23/18 Date of Discharge: 01/24/18 - Primary Discharge Diagnosis Active and Suspected Problems 1. Acute on chronic hypoxic respiratory failure suspect secondary to acute CHF vs metastatic thyroid cancer 2. Bilateral pleural effusions 3. 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 Hospice transition - Secondary Discharge Diagnosis Chronic Problems Papillary thyroid carcinoma (Chronic) Hypothyroidism (Chronic) ASHLEIGH (obstructive sleep apnea) (Chronic) Chronic respiratory failure with hypoxia (Chronic) Wears O2 at night only. Hospital Course and Treatment Imaging Results: Diagnostic Data Chest CTA 01/23/18 13:13 IMPRESSION: No demonstrated PE, or thoracic aortic aneurysm or dissection. Extensive abnormally enlarged mediastinal and perihilar lymph nodes suspicious for metastasis Innumerable noncalcified nodules in both lung [place] consistent with pulmonary metastasis Chronic interstitial changes in both lung [place] Degenerative bony changes Calcified coronary vessels Low-density lesions within both lobes of the liver suspicious for metastasis Electronically Signed: Abdoulaye Barrientos MD at 14:26 EDT , Service support , Chest X-Ray 01/24/18 01:51 IMPRESSION: Bilateral infiltrates worse on the right side unchanged as prior examination. Small bilateral pleural effusions. Electronically Signed: Alvaro Barrera MD at 2:44 EDT Tel , Service support , Dr. Oro- Oncology Operations: None Procedures: 2-D Echocardiogram Summary of Care Provided: The patient is a 78 year old M admitted 01/23/2018 due to shortness of breath, hypoxia, lower extremity swelling. 1. Acute on chronic hypoxic respiratory failure suspect secondary to acute CHF vs metastatic thyroid cancer-chest x-ray on admission with small bilateral pleural effusions. Chest CTA showed no PE. Extensive abnormally enlarged mediastinal and perihilar lymph nodes suspicious for metastasis. Innumerable noncalcified nodules in both lung [place] consistent with pulmonary metastasis. Calcified coronary vessels. Low-density lesions within both lobes of the liver suspicious for metastasis. BNP 396. Patient reports he wears oxygen at night only at home. Continue supplement oxygen to maintain O2 at or above 90%. Bilateral lower extremity edema. Sumanth wraps bilateral lower extremities. Echo pending at [facility]. Suspect that majority of current sx are related to metastatic CA. Hospice transition. 2. Bilateral pleural effusions 3. Obstructive sleep apnea-CPAP nightly. 4. Hypothyroidism status post thyroid cancer with metastasis-on synthroid regimen. TSH 0.13. 5. 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 Follows with Dr. Aquino, [facility] Oncology. Unclear how recently he has followed up. Consult Dr. Oro given concern for metastasis which patient denies being aware of. CT from July 2017 at [facility] showed interval increase in size of pulmonary mas ses and nodules with development of new nodules. Findings worsened from prior studies. Worsening of mediastinal and hilar lymphadenopathy. Multiple lesions in the liver. Oncology recommending hospice care given extensive metastasis. Patient and family agreeable to hospice services. 6. Chronic hemoptysis-patient reports this is been ongoing since 2011. PCP records show patient was hospitalized for recurrent hemoptysis in 2016 at outside facility. He underwent therapeutic bronchoscopy. Does not follow with pulmonary medicine. Has not seen primary care since 2013. 7. Status post insulinoma resection 8. Chronic thrombocytopenia 9. Obesity General: Alert, Oriented x3, Cooperative HEENT: Atraumatic, PERRLA, EOMI, Normocephalic Neck: Supple, No JVD, Negative Carotid Bruits Lungs: Diminished, - - Coarse crackles Cardiovascular: Regular Rhythm, Normal S1, Normal S2, No murmurs, Tachycardic Abdomen: Bowel Sounds Present, Soft, Non Tender, Non-Distended, Obese, Hernia Extremities: No clubbing, No cyanosis, - - Lymphedema bilateral lower extremities Skin: No rashes, No breakdown, - - Erythema right lower extremity Musculoskeletal: No Tenderness to Palpation of Joints or Extremities Neurological: Cranial nerves II-XII grossly intact, Neuro grossly intact Psych/Mental Status: Normal Affect, Appropriate CODE status: Discussed in depth with patient and patient's and daughter. Patient does not want any aggressive treatment or life-sustaining measures. DNR CC with hospice transition at discharge. Patient seen exam prior to discharge. Physical assessment as noted above. Patient discharged home with [facility]. This patient was seen by MARLYN Landaverde under the supervision of Dr. Baeza. - Physical Exam Vital Signs Temp Pulse Resp BP Pulse Ox 98.2 F 92 16 127/78 H 98 01/24/18 11:34 01/24/18 13:10 01/24/18 13:10 01/24/18 11:34 01/24/18 11:34 Oxygen Flow Rate (L/min) 5 Oxygen Delivery Method Venturi Mask Weight: 255 lb 15.307 oz Body Mass Index (BMI) 39.2 Intake and Output for Last 24 Hours 01/22/18 01/23/18 01/24/18 23:59 23:59 23:59 Intake Total 0 / 0 90 / 90 Output Total 1890 / 1890 280 / 280 Balance -1890 / -1890 -190 / -190 Laboratory Tests Past 24 Hrs 01/23/18 01/23/18 01/24/18 17:26 20:28 02:42 WBC 11.8 H RBC 5.65 Hgb 14.2 Hct 47.4 MCV 83.9 MCH 25.1 L MCHC 30.0 L RDW 17.4 H RDW Differential 53.0 H Plt Count 115 L Immature Gran % (Auto) 0.300 Neut % (Auto) 68.0 Lymph % (Auto) 15.7 L [place] % (Auto) 14.7 H Eos % (Auto) 1.1 Baso % (Auto) 0.2 Absolute Neuts (auto) 8.0 H Absolute Lymphs (auto) 1.85 Total Counted Not Reportable Nucleated RBC % 0.5 Differential Comment SCANNED Platelet Estimate ADEQUATE Plt Morphology Comment A Hypochromasia 3+ Target Cells 2+ Absolute Retic 0.06 Sodium Potassium Chloride Carbon Dioxide Anion Gap BUN Creatinine Estim Creat Clear Calc Est GFR (MDRD) Af Amer Est GFR (MDRD) Non-Af BUN/Creatinine Ratio Glucose Lactic Acid Calcium Magnesium Troponin I 0.018 0.018 TSH 0.13 L 01/24/18 01/24/18 01/24/18 02:42 02:42 05:22 WBC RBC Hgb Hct MCV MCH MCHC RDW RDW Differential Plt Count Immature Gran % (Auto) Neut % (Auto) Lymph % (Auto) [place] % (Auto) Eos % (Auto) Baso % (Auto) Absolute Neuts (auto) Absolute Lymphs (auto) Total Counted Nucleated RBC % Differential Comment Platelet Estimate Plt Morphology Comment Hypochromasia Target Cells Absolute Retic Sodium 139 144 Potassium 4.0 4.1 Chloride 104 104 Carbon Dioxide 28.0 31.0 Anion Gap 7 9 BUN 12 12 Creatinine 0.82 0.78 Estim Creat Clear Calc 73.05 59.90 Est GFR (MDRD) Af Amer 117 124 Est GFR (MDRD) Non-Af 97 102 BUN/Creatinine Ratio 14.7 15.4 Glucose 130 H 112 H Lactic Acid 1.7 Calcium 8.0 L 8.4 L Magnesium 1.9 Troponin I TSH 01/24/18 05:22 WBC 11.8 H RBC 5.53 Hgb 13.7 Hct 47.3 MCV 85.5 MCH 24.8 L MCHC 29.0 L RDW 17.5 H RDW Differential 54.8 H Plt Count 116 L Immature Gran % (Auto) 0.100 Neut % (Auto) 65.7 Lymph % (Auto) 18.7 L [place] % (Auto) 14.0 H Eos % (Auto) 1.4 Baso % (Auto) 0.1 Absolute Neuts (auto) 7.8 H Absolute Lymphs (auto) 2.21 Total Counted Not Reportable Nucleated RBC % 0.5 Differential Comment COMMENT Platelet Estimate Plt Morphology Comment Hypochromasia Target Cells Absolute Retic 0.05 Sodium Potassium Chloride Carbon Dioxide Anion Gap BUN Creatinine Estim Creat Clear Calc Est GFR (MDRD) Af Amer Est GFR (MDRD) Non-Af BUN/Creatinine Ratio Glucose Lactic Acid Calcium Magnesium Troponin I TSH Discharge Activity: Return to Normal Activity Home Medications: Medications to take at Discharge Levothyroxine [Synthroid] 137 mcg PO MOFR 01/23/18 Levothyroxine [Synthroid] 274 mcg PO SUTUWETHSA 01/23/18 traMADol [Ultram (G)] 50 mg PO BID 01/23/18 Primary Care Physician: Shan Bonilla MD [Primary Care Provider] - Please follow up with your Primary Care Physician in: As needed Please Follow Up With: [facility] When: Established at [facility] Disposition: Home with Hospice Minutes spent on discharge:: 35 Patient Condition:: Fair Medical Necessity - Tobacco Use Smoking Status: Former smoker Tobacco Use: Cigarettes Meaningful Use Info Meaningful Use Diagnoses (Choose all that apply): None applicable <Roman Baeza - Last Filed: 01/24/18 15:05> Discharge Date and Diagnosis - Secondary Discharge Diagnosis Chronic Problems Papillary thyroid carcinoma (Chronic) Hypothyroidism (Chronic) ASHLEIGH (obstructive sleep apnea) (Chronic) Chronic respiratory failure with hypoxia (Chronic) Wears O2 at night only. Hospital Course and Treatment Operations: None Procedures: 2-D Echocardiogram Summary of Care Provided: Patient seen and examined independently. Data reviewed. I agree with the above note by the nurse practitioner. The patient is a 78 year old M with shortness of breath and hypoxia. 1. Acute on chronic hypoxic and hypercapnic respiratory failure * Due to metastatic lesions pleural effusions. * May also be a component of CHF on top of that. * Weight is down 4 kg since admission though this may not be completely accurate. * received IV Lasix * Follow-up echocardiogram 2. Pulmonary metastases * I feel is likely the biggest component to the patient's respiratory failure given the innumerable test disease and large size of them as well. * Per history patient has had other pulmonary metastases had been treated with radiation * Presumably this is due to his known history of metastatic papillary thyroid cancer 3. Suspected CHF exacerbation * Unclear type * Follow-up echocardiogram 4. Chronic hemoptysis * Due to pulmonary metastases * Monitor Patient family met with hospice. Plan is for the patient be discharged home with hospice. [] - Physical Exam Vital Signs Temp Pulse Resp BP Pulse Ox 36.8 C 92 16 127/78 H 98 01/24/18 11:34 01/24/18 13:10 01/24/18 13:10 01/24/18 11:34 01/24/18 11:34 Oxygen Flow Rate (L/min) 5 Oxygen Delivery Method Venturi Mask Weight: 116.1 kg Body Mass Index (BMI) 39.2 Intake and Output for Last 24 Hours 01/22/18 01/23/18 01/24/18 23:59 23:59 23:59 Intake Total 0 / 0 90 / 90 Output Total 1890 / 1890 280 / 280 Balance -1890 / -1890 -190 / -190 Laboratory Tests Past 24 Hrs 01/23/18 01/23/18 01/24/18 17:26 20:28 02:42 WBC 11.8 H RBC 5.65 Hgb 14.2 Hct 47.4 MCV 83.9 MCH 25.1 L MCHC 30.0 L RDW 17.4 H RDW Differential 53.0 H Plt Count 115 L Immature Gran % (Auto) 0.300 Neut % (Auto) 68.0 Lymph % (Auto) 15.7 L [place] % (Auto) 14.7 H Eos % (Auto) 1.1 Baso % (Auto) 0.2 Absolute Neuts (auto) 8.0 H Absolute Lymphs (auto) 1.85 Total Counted Not Reportable Nucleated RBC % 0.5 Differential Comment SCANNED Platelet Estimate ADEQUATE Plt Morphology Comment A Hypochromasia 3+ Target Cells 2+ Absolute Retic 0.06 Sodium Potassium Chloride Carbon Dioxide Anion Gap BUN Creatinine Estim Creat Clear Calc Est GFR (MDRD) Af Amer Est GFR (MDRD) Non-Af BUN/Creatinine Ratio Glucose Lactic Acid Calcium Magnesium Troponin I 0.018 0.018 TSH 0.13 L 01/24/18 01/24/18 01/24/18 02:42 02:42 05:22 WBC RBC Hgb Hct MCV MCH MCHC RDW RDW Differential Plt Count Immature Gran % (Auto) Neut % (Auto) Lymph % (Auto) [place] % (Auto) Eos % (Auto) Baso % (Auto) Absolute Neuts (auto) Absolute Lymphs (auto) Total Counted Nucleated RBC % Differential Comment Platelet Estimate Plt Morphology Comment Hypochromasia Target Cells Absolute Retic Sodium 139 144 Potassium 4.0 4.1 Chloride 104 104 Carbon Dioxide 28.0 31.0 Anion Gap 7 9 BUN 12 12 Creatinine 0.82 0.78 Estim Creat Clear Calc 73.05 59.90 Est GFR (MDRD) Af Amer 117 124 Est GFR (MDRD) Non-Af 97 102 BUN/Creatinine Ratio 14.7 15.4 Glucose 130 H 112 H Lactic Acid 1.7 Calcium 8.0 L 8.4 L Magnesium 1.9 Troponin I TSH 01/24/18 05:22 WBC 11.8 H RBC 5.53 Hgb 13.7 Hct 47.3 MCV 85.5 MCH 24.8 L MCHC 29.0 L RDW 17.5 H RDW Differential 54.8 H Plt Count 116 L Immature Gran % (Auto) 0.100 Neut % (Auto) 65.7 Lymph % (Auto) 18.7 L [place] % (Auto) 14.0 H Eos % (Auto) 1.4 Baso % (Auto) 0.1 Absolute Neuts (auto) 7.8 H Absolute Lymphs (auto) 2.21 Total Counted Not Reportable Nucleated RBC % 0.5 Differential Comment COMMENT Platelet Estimate Plt Morphology Comment Hypochromasia Target Cells Absolute Retic 0.05 Sodium Potassium Chloride Carbon Dioxide Anion Gap BUN Creatinine Estim Creat Clear Calc Est GFR (MDRD) Af Amer Est GFR (MDRD) Non-Af BUN/Creatinine Ratio Glucose Lactic Acid Calcium Magnesium Troponin I TSH Discharge Activity: Return to Normal Activity Disposition: Home with Hospice Minutes spent on discharge:: 35 Patient Condition:: Poor Meaningful Use Info Meaningful Use Diagnoses (Choose all that apply): None applicable Code Visit Inpatient E&M: 83780 Disch Hosp
--- NOTE | 2018-01-24 16:00 | CASEMGMT ---
Call to [facility] to see if pt can get tank to get home. [facility] is aware that pt will be on 6-8liters via trach venti mask and they he will have about an hour drive home. Per [place], they will deliver a double e-tank to make sure pt has plenty of oxygen to get home on. Annamarie RIVERA and Festus SAUNDERS aware at this time, voice understanding. Fish RIVERA CM
--- NOTE | 2018-01-24 16:26 | CASEMGMT ---
[facility] will bring a couple of portables to get patient home. CHIP spoke with patient's daughter and she said they will transport patient home once the O2 comes. CHIP spoke with Karla at [facility] ([facility]) and she said patient's daughter asked them to come out tomorrow at 10 am. CHIP spoke with [employer] Nica and she was okay with this. CHIP let Karla know that patient is going home on 8L and a cueva catheter. She said this is not a problem. She told SW to tell family if they need anything tonight they can call them as there are staff special education teaching assistant. CHIP wrote down the name and number of Hospice on patient's d/c instructions and also notified RN of this information. CHIP faxed d/c instructions to [facility]. Plan: Home with [facility] to see patient tomorrow at 10 am at his home. Family will transport patient home tonight with portables delivered by [facility]. Lina JONES MSW
== END 2018-01-24 16:45 | disposition hospice, home (50) | DRG 189 ==
LOC: ED 13:37 → PCU 16:45
PROVIDERS: Family Medicine; Nurse Practitioner Family; Admitting Provider Hospitalist; Emergency Provider Emergency Medicine; Family Provider Family Medicine; PCP Family Medicine
DX: J96.21 Acute and chronic respiratory failure with hypoxia (principal); C78.7 Secondary malignant neoplasm of liver and intrahepatic bile duct; C78.00 Secondary malignant neoplasm of unspecified lung; J91.8 Pleural effusion in other conditions classified elsewhere; C77.1 Secondary and unspecified malignant neoplasm of intrathoracic lymph nodes; R04.2 Hemoptysis; I50.9 Heart failure, unspecified; Z93.0 Tracheostomy status; Z51.5 Encounter for palliative care; E89.0 Postprocedural hypothyroidism; Z99.81 Dependence on supplemental oxygen; G47.33 Obstructive sleep apnea (adult) (pediatric); C73 Malignant neoplasm of thyroid gland; E66.9 Obesity, unspecified; Z68.39 Body mass index [BMI] 39.0-39.9, adult; D69.6 Thrombocytopenia, unspecified
CPT/HCPCS: 36415; 36600; 71045; 71046; 71275; 80048; 80053; 82803; 83605; 83690; 83735; 83880; 84443; 84484; 85025; 85610; 85730; 87040; 93005; 93306; 93971; 94640; 99285; J7030; Q9957; Q9967; A4216; C8929; J1940